=== PATIENT | female | born 1960 | race African-American/Black ===

== ENCOUNTER 2016-10-06 10:07 | Emergency (ER) | payer OTHER ==
[~2016-10-06] VITALS: Ht 165.1 cm; Wt 67.1 kg
[2016-10-06] MEDS ORDERED: Dicyclomine HCl 10mg/5ml oral soln ORAL ONE (10:30)
[2016-10-06] MEDS ORDERED: Morphine Sulfate 4mg/ml Inj IVP ONE (10:30)
[2016-10-06] MEDS ORDERED: Mylanta II UD 30ml ORAL ONE (10:30)
[2016-10-06] MEDS ORDERED: Lidocaine 2% Visc 15ml soln ORAL ONE (10:30)
[2016-10-06] MEDS ORDERED: Famotidine 20 MG/ 2ML VIAL IVP ONE (10:30)
[2016-10-06 10:37] VITALS: BP 130/84
[2016-10-06 11:24] LABS: APPEARANCE,URINE SLIGHTLY CLOUDY; KETONES,URINE NEGATIVE (NEGATIVE); LEUKOCYTE ESTERASE ,URINE 3+ (NEGATIVE); NITRITE,URINE NEGATIVE (NEGATIVE); PH,URINE 6 (4.5-8.0); PROTEIN,URINE 2+ (NEGATIVE); UROBILINOGEN,URINE 1 MG/DL (0.0-1.0)
[2016-10-06 11:46] LABS: BACTERIA,URINE FEW /HPF; MUCUS,URINE FEW /LPF (NONE/OCC); RBC,URINE 0-2 /HPF (0 - 2); SQUAMOUS EPITHELIAL CELL,UR FEW /LPF (NONE/OCC); WBC,URINE 15-20 /HPF (0 - 2)
[2016-10-06 12:08] LABS: BASOPHILS % (AUTO) 0.9 % (0.0-2.0); EOSINOPHILS % (AUTO) 0.1 % (0.0-3.0); LYMPHOCYTES % (AUTO) 24.4 % (20.0-45.0); MEAN CORPUSCULAR HEMOGLOBIN 27.3 PG (27.0-31.0); MEAN CORPUSCULAR HGB CONC 31.9 G/DL (32.0-36.0); MEAN CORPUSCULAR VOLUME 86 FL (80-99); MEAN PLATELET VOLUME 9.3 FL (6.5-10.1); MONOCYTES % (AUTO) 5.1 % (1.0-10.0); NEUTROPHILS % (AUTO) 69.5 % (45.0-75.0); PLATELET COUNT 171 K/UL (150-450); RED BLOOD COUNT 5.36 M/UL (4.20-5.40); RED CELL DISTRIBUTION WIDTH 13.8 % (11.6-14.8); WHITE BLOOD COUNT 6.9 K/UL (4.8-10.8)
[2016-10-06 14:05] VITALS: BP 128/73
[2016-10-06] MEDS ORDERED: ZOFRAN ODT4 MG ORAL (14:14)
[2016-10-06] MEDS ORDERED: PROTONIX40 MG ORAL (14:14)
[2016-10-06 14:15] VITALS: BP 128/73
--- NOTE | 2016-10-06 15:07 | Emergency Room Report ---
History of Present Illness General Chief Complaint: Abdominal Pain Source: Patient Present Illness HPI 56-year-old female presents ED complaining of abdominal pain. States symptoms started today. Patient came in by EMS. Patient states that she is written recently noted to have gastritis. Scheduled to see GI specialist as outpatient next week. Patient states the last week she has been to [facility] and [place] for the same reason. Patient told her workup is negative was discharged on medications. States the medications are not helping. Patient states the pain is sharp, epigastric, nonradiating. 10 out of 10. No other aggravating relieving factors. Denies chest pain or shortness of breath. Denies any other associated symptoms Allergies: Coded Allergies: No Known Allergies (Unverified , 10/06/16) Patient History Past Medical History: GERD Past Surgical History: none - a Pertinent Family History: none Social History: Denies: alcohol use, drug use, smoking Last Menstrual Period: na Now: No Immunizations: UTD Reviewed Nursing Documentation: PMH: Agreed, PSxH: Agreed Nursing Documentation-PMH Past Medical History: No Stated History Review of Systems All Other Systems: negative except mentioned in HPI Physical Exam Vital Signs Date Time Temp Pulse Resp B/P Pulse Ox O2 Delivery O2 Flow Rate FiO2 10/06/16 10:04 98 16 179/132 98 Room Air 10/06/16 10:37 97.6 Sp02 EP Interpretation: reviewed, normal General Appearance: alert, GCS 15, non-toxic, mild distress Head: normocephalic, atraumatic Eyes: bilateral eye PERRL, bilateral eye normal inspection ENT: hearing grossly normal, normal pharynx, no angioedema, normal voice Neck: full range of motion, supple/symm/no masses Respiratory: chest non-tender, lungs clear, normal breath sounds, speaking full sentences Cardiovascular #1: regular rate, rhythm, no edema Cardiovascular #2: 2+ carotid (R), 2+ carotid (L), 2+ radial (R), 2+ radial (L) , 2+ dorsalis pedis (R), 2+ dorsalis pedis (L) Gastrointestinal: normal bowel sounds, soft, non-distended, no guarding, no rebound, tenderness Rectal: deferred Genitourinary: normal inspection, no CVA tenderness Musculoskeletal: back normal, gait/station normal, normal range of motion, non- tender Neurologic: alert, oriented x3, responsive, motor strength/tone normal, sensory intact, speech normal Psychiatric: judgement/insight normal, memory normal, mood/affect normal, no suicidal/homicidal ideation Reflexes: 3+ bicep (R), 3+ bicep (L), 3+ tricep (R), 3+ tricep (L), 3+ knee (R) , 3+ knee (L) Skin: normal color, no rash, warm/dry, well hydrated Lymphatic: no adenopathy Medical Decision Making Diagnostic Impression: Primary Impression: Gastritis Qualified Codes: K29.00 - Acute gastritis without bleeding Additional Impression: Opioid use disorder, severe, dependence ER Course Hospital Course 56-year-old F presents to ED with epigastric pain with N/V. differential diagnosis: gastritis, SBO, cholecystits Clinical course Patient placed on stretcher. On coat checker. After initial history and physical I ordered labs, IV fluids, morphine, protonix and zofran Labs - no leukocytosis, hb/hct stable chemistry hemolyzed twice, refused to have 3rd draw Upon reassessment, patient states pain has improved. findings consistent with gastritis. Reviewed patient's discharge papers from the last 2 visits to [place] and [facility]. Workups for unremarkable including chemistry and troponins. I feel this is a highly complex case requiring extensive working including EKG/ Rhythm strip, Xray/CT/US, Blood/urine lab work, repeat exams while in ED, and administration of strong opiates/narcotics for pain control, admission to hospital or close patient follow up. Diagnosis - gastritis, opioid use dependence Stable and discharged to home with prescriptions for protonix, zofran. Followup with PMD. Return to ED if symptoms recur or worsen Labs Test 10/06/16 11:05 10/06/16 11:57 Urine Color Yellow Urine Appearance Slightly cloudy Urine pH 6 (4.5-8.0) Urine Specific [place] 1.015 (1.005-1.035) Urine Protein 2+ (NEGATIVE) Urine Glucose (UA) Negative (NEGATIVE) Urine Ketones Negative (NEGATIVE) Urine Occult Blood Negative (NEGATIVE) Urine Nitrite Negative (NEGATIVE) Urine Bilirubin Negative (NEGATIVE) Urine Urobilinogen 1 MG/DL (0.0-1.0) Urine Leukocyte Esterase 3+ (NEGATIVE) Urine RBC 0-2 /HPF (0 - 2) Urine WBC 15-20 /HPF (0 - 2) Urine Squamous Epithelial Cells Few /LPF (NONE/OCC) Urine Bacteria Few /HPF (NONE) Urine Mucus Few /LPF (NONE/OCC) White Blood Count 6.9 K/UL (4.8-10.8) Red Blood Count 5.36 M/UL (4.20-5.40) Hemoglobin 14.6 G/DL (12.0-16.0) Hematocrit 45.8 % (37.0-47.0) Mean Corpuscular Volume 86 FL (80-99) Mean Corpuscular Hemoglobin 27.3 PG (27.0-31.0) Mean Corpuscular Hemoglobin Concent 31.9 G/DL (32.0-36.0) Red Cell Distribution Width 13.8 % (11.6-14.8) Platelet Count 171 K/UL (150-450) Mean Platelet Volume 9.3 FL (6.5-10.1) Neutrophils (%) (Auto) 69.5 % (45.0-75.0) Lymphocytes (%) (Auto) 24.4 % (20.0-45.0) Monocytes (%) (Auto) 5.1 % (1.0-10.0) Eosinophils (%) (Auto) 0.1 % (0.0-3.0) Basophils (%) (Auto) 0.9 % (0.0-2.0) EKG Diagnostic Results Rate: normal Rhythm: NSR ST Segments: no acute changes ASA given to the pt in ED: No Rhythm Strip Diag. Results EP Interpretation: yes Rhythm: NSR, no PVC's, no ectopy Last Vital Signs Date Time Temp Pulse Resp B/P Pulse Ox O2 Delivery O2 Flow Rate FiO2 10/06/16 14:15 97.6 64 18 128/73 100 Room Air Status: improved Disposition: HOME, SELF-CARE Condition: Stable Scripts Ondansetron Odt* (ZOFRAN ODT*) 4 Mg Tab.rapdis 4 MG ORAL Q6H Y for Nausea & Vomiting, #30 TAB 0 Refills Prov: ADILIA MURCIA M.D. 10/06/16 Pantoprazole* (PROTONIX*) 40 Mg Tablet.dr 40 MG ORAL DAILY, #30 TAB Prov: ADILIA MURCIA M.D. 10/06/16 Patient Instructions: Gastritis, Adult, [id number] ADILIA MURCIA M.D. Oct 06, 2016 15:07
--- NOTE | 2016-10-08 08:57 | Emergency Room Report ---
Physical Exam Vital Signs Date Time Temp Pulse Resp B/P Pulse Ox O2 Delivery O2 Flow Rate FiO2 10/06/16 10:04 98 16 179/132 98 Room Air 10/06/16 10:37 97.6 Medical Decision Making Diagnostic Impression: Primary Impression: Gastritis Qualified Codes: K29.00 - Acute gastritis without bleeding Additional Impression: Opioid use disorder, severe, dependence ER Course Following up on urine culture report dated 10/06/2016 with a growth of 100,000 CFU. Patient was seen on the for vomiting and treated for gastritis, there is a some suggestion of a possible urinary tract infection. The patient not receive antibiotics for was not discharged with antibiotics. I called her phone number. This did as [phone]. Left a callback number for the ER here [phone] to 01/15/2005 asking to speak with her to do symptoms followup and decision for prescription. second phone call was made, no answer at this number again. Liver by Dr. cartagena for follow up prn. Last Vital Signs Date Time Temp Pulse Resp B/P Pulse Ox O2 Delivery O2 Flow Rate FiO2 10/06/16 14:15 97.6 64 18 128/73 100 Room Air Disposition: HOME, SELF-CARE Condition: Stable Scripts Ondansetron Odt* (ZOFRAN ODT*) 4 Mg Tab.rapdis 4 MG ORAL Q6H Y for Nausea & Vomiting, #30 TAB 0 Refills Prov: ADILIA CARTAGENA M.D. 10/06/16 Pantoprazole* (PROTONIX*) 40 Mg Tablet. 40 MG ORAL DAILY, #30 TAB Prov: ADILIA CARTAGENA M.D. 10/06/16 Patient Instructions: Gastritis, Adult, [id number] Nish Sanford MD Oct 08, 2016 08:57
--- NOTE | 2016-10-09 19:13 | Cardiology Report ---
APPROVED REPORT EKG Measurement Heart [id number] PA 130P50 [id number] Normal sinus rhythm Possible Left atrial enlargement T wave abnormality, consider anterior ischemia Abnormal ECG
== END 2016-10-06 14:15 | disposition home or self-care (01) ==
LOC: EDBD 10:07 → EMR 10:40
DX: K29.70 Gastritis, unspecified, without bleeding (principal); K21.9 Gastro-esophageal reflux disease without esophagitis; F11.20 Opioid dependence, uncomplicated
CPT/HCPCS: 36415; 81003; 85025; 87086; 93005; 96374; 96375; 99284; J2270; J2405; S0028

== ENCOUNTER 2016-11-19 13:26 | Emergency (ER) | payer OTHER ==
[~2016-11-19] VITALS: Ht 157.5 cm; Wt 65.8 kg
[2016-11-19 13:26] VITALS: BP 140/80
[~2016-11-19 13:26] MED LIST: PROTONIX40 MG ORAL; ZOFRAN ODT4 MG ORAL
[2016-11-19] MEDS ORDERED: Lidocaine 2% Visc 15ml soln ORAL ONE (14:00)
[2016-11-19] MEDS ORDERED: Dicyclomine HCl 10mg/5ml oral soln ORAL ONE (14:00)
--- NOTE | 2016-11-19 14:05 | Emergency Room Report ---
History of Present Illness General Chief Complaint: General Complaint Source: Patient Present Illness HPI Patient is a 56-year-old female who presented after having increased burning sensation. Patient stated she gradual onset of symptoms. Patient prior history of pancreatitis. The patient been previously worked up with CT imaging at outside facility. Patient had been chronic pain medications that she run out of her medications. Patient had been taking Zofran as well as Protonix. Patient denies drug use or alcohol use. She states that she has not been having any fever. She reports having some right ear decreased hearing for approximately 2 weeks. Allergies: Coded Allergies: No Known Allergies (Unverified , 10/06/16) Patient History Past Medical History: see triage record Now: No Reviewed Nursing Documentation: PMH: Agreed, PSxH: Agreed Nursing Documentation-PMH Hx Cardiac Problems: No Hx Hypertension: No Hx Pacemaker: No Hx Asthma: No Hx COPD: No Hx Diabetes: No Hx Cancer: No Hx Gastrointestinal Problems: Yes - pancreatitis Hx Dialysis: No History Of Psychiatric Problem: No Hx Neurological Problems: No Hx Cerebrovascular Accident: No Hx Seizures: No Review of Systems All Other Systems: negative except mentioned in HPI Physical Exam Vital Signs Date Time Temp Pulse Resp B/P Pulse Ox O2 Delivery O2 Flow Rate FiO2 11/19/16 13:17 97.9 68 16 140/80 98 Room Air General Appearance: well appearing, no apparent distress, alert, GCS 15, Chronically Ill Head: normocephalic, atraumatic ENT: hearing grossly normal, normal voice Neck: full range of motion, supple Respiratory: lungs clear, normal breath sounds, no respiratory distress, speaking full sentences Cardiovascular #1: normal peripheral pulses, regular rate, rhythm Gastrointestinal: normal bowel sounds, non tender, soft, no mass Musculoskeletal: normal inspection, back normal, no calf tenderness Neurologic: normal inspection, alert, oriented x3, responsive, normal gait Psychiatric: mood/affect normal Skin: no rash Medical Decision Making Diagnostic Impression: Primary Impression: Opioid use disorder, severe, dependence Additional Impression: Gastritis ER Course Patient presented for abdominal pain. Differential diagnoses included ischemic bowel, appendicitis, perforated viscus, abdominal aortic aneurysm, inferior myocardial infarction, viral gastroenteritis Patient's benign exam and does not appear to require any further imaging or laboratory testing at this time. The patient appears to have a chronic pain related to her stomach and esophagus. Patient said multiple studies have been performed for evaluation. Patient has been recently prescribed multiple different types of medications which include narcotic pain medication as well as muscle relaxants and sleep medications. Patient does not appear to require any acute laboratory testing at this time. Last Vital Signs Date Time Temp Pulse Resp B/P Pulse Ox O2 Delivery O2 Flow Rate FiO2 11/19/16 13:26 97.9 68 16 140/80 98 Room Air Status: improved Disposition: HOME, SELF-CARE Condition: Stable Scripts Sucralfate* (CARAFATE*) 1 Gm Tablet 1 GM ORAL FOUR TIMES A DAY, #30 TAB Prov: Walker Breen 11/19/16 Walker Breen Nov 19, 2016 14:05
[2016-11-19] MEDS ORDERED: CARAFATE1 G1 ORAL (14:06)
[2016-11-19 14:17] VITALS: BP 140/80
== END 2016-11-19 14:17 | disposition home or self-care (01) ==
LOC: EDBD 13:26 → EMR 13:50
DX: K29.70 Gastritis, unspecified, without bleeding (principal); F11.29 Opioid dependence with unspecified opioid-induced disorder
CPT/HCPCS: 99283

== ENCOUNTER 2016-12-10 09:45 | Emergency (ER) | payer OTHER ==
[2016-12-10] VITALS (7 sets, daily range): BP systolic 155–171; BP diastolic 78–89
[~2016-12-10] VITALS: Ht 162.6 cm; Wt 56.7 kg
[~2016-12-10 09:45] MED LIST changes: +CARAFATE1 G1 ORAL
[2016-12-10] MEDS ORDERED: Tubing IV Cassette IV ONE (10:20)
[2016-12-10] MEDS: Loperamide 2mg cap ORAL ONE ×2 (10:23→11:22)
[2016-12-10 10:29] LABS: LYMPHOCYTES % (AUTO) 35.2 % (20.0-45.0); MEAN CORPUSCULAR HEMOGLOBIN 28.3 PG (27.0-31.0); MEAN CORPUSCULAR VOLUME 88 FL (80-99); MEAN PLATELET VOLUME 9.4 FL (6.5-10.1); MONOCYTES % (AUTO) 6.3 % (1.0-10.0); NEUTROPHILS % (AUTO) 55.5 % (45.0-75.0); PLATELET COUNT 163 K/UL (150-450); RED BLOOD COUNT 5.21 M/UL (4.20-5.40); RED CELL DISTRIBUTION WIDTH 13.8 % (11.6-14.8); WHITE BLOOD COUNT 4.3 K/UL (4.8-10.8)
--- NOTE | 2016-12-10 10:36 | Emergency Room Report ---
History of Present Illness General Chief Complaint: Abdominal Pain Source: Patient, EMS Present Illness HPI Patient is a 56-year-old female who presented after having increased abdominal pain. Patient prior history of pancreatitis. Patient prior recent visit for similar symptoms. Patient reports having nonbloody diarrhea. Patient states that she had not taking her pain medication for the past 3 days. Patient had previously been noted be narcotic dependent. Patient was reported having some nausea without vomiting. Patient reports having epigastric pain. Pain did not radiate. Allergies: Coded Allergies: No Known Allergies (Unverified , 10/06/16) Patient History Past Medical History: see triage record Reviewed Nursing Documentation: PMH: Agreed, PSxH: Agreed Nursing Documentation-PMH Hx Cardiac Problems: No Hx Hypertension: No Hx Pacemaker: No Hx Asthma: No Hx COPD: No Hx Diabetes: No Hx Cancer: No Hx Gastrointestinal Problems: Yes - GERD; Pancreatitis Hx Dialysis: No Hx Neurological Problems: No Hx Cerebrovascular Accident: No Hx Seizures: No Review of Systems All Other Systems: negative except mentioned in HPI Physical Exam Vital Signs Date Time Temp Pulse Resp B/P Pulse Ox O2 Delivery O2 Flow Rate FiO2 12/10/16 09:40 97.2 91 18 154/60 100 Room Air Sp02 EP Interpretation: reviewed, normal General Appearance: normal inspection, well appearing, no apparent distress, alert, GCS 15 Head: atraumatic ENT: normal ENT inspection, hearing grossly normal, normal voice Neck: normal inspection, full range of motion, supple, no bony tend Respiratory: normal inspection, lungs clear, normal breath sounds, no respiratory distress, no retraction, no wheezing Cardiovascular #1: regular rate, rhythm, no edema Gastrointestinal: normal inspection, normal bowel sounds, non tender, soft, no guarding, no hernia Genitourinary: no CVA tenderness Musculoskeletal: normal inspection, back normal, normal range of motion Neurologic: normal inspection, alert, responsive, speech normal Psychiatric: normal inspection, judgement/insight normal, mood/affect normal Skin: normal inspection, normal color, no rash Medical Decision Making Diagnostic Impression: Primary Impression: Abdominal pain Additional Impressions: Biliary tract disorder Choledocholithiasis ER Course Patient presented for abdominal pain.Patient presented for abdominal pain. Differential diagnoses included ischemic bowel, appendicitis, perforated viscus , abdominal aortic aneurysm, inferior myocardial infarction, viral gastroenteritis Because of complexity of patient's case laboratory testing and imaging studies were ordered. Laboratory testing was unremarkable. Patient showed no evidence of pancreatitis. The patient was given IV morphine for pain. Patient was noted to have CT imaging read by radiologist which showed some dilation of the patient 's common bile duct as well as the intrahepatic ducts. Laboratory testing showed no evidence of elevated white blood count or a liver function test consistent with definite biliary obstruction. The patient was given IV morphine as well as Zofran. Patient had persistent vomiting as well as consistent pain. The patient was given IV H2 jose alfredo. The patient be transferred for continuity of care to the [facility]. was accepting physician. Labs Test 12/10/16 09:55 White Blood Count 4.3 K/UL (4.8-10.8) Red Blood Count 5.21 M/UL (4.20-5.40) Hemoglobin 14.7 G/DL (12.0-16.0) Hematocrit 46.0 % (37.0-47.0) Mean Corpuscular Volume 88 FL (80-99) Mean Corpuscular Hemoglobin 28.3 PG (27.0-31.0) Mean Corpuscular Hemoglobin Concent 32.0 G/DL (32.0-36.0) Red Cell Distribution Width 13.8 % (11.6-14.8) Platelet Count 163 K/UL (150-450) Mean Platelet Volume 9.4 FL (6.5-10.1) Neutrophils (%) (Auto) 55.5 % (45.0-75.0) Lymphocytes (%) (Auto) 35.2 % (20.0-45.0) Monocytes (%) (Auto) 6.3 % (1.0-10.0) Eosinophils (%) (Auto) 2.0 % (0.0-3.0) Basophils (%) (Auto) 1.0 % (0.0-2.0) Sodium Level 140 mEQ/L (135-145) Potassium Level 3.8 mEQ/L (3.4-4.9) Chloride Level 99 mEQ/L (98-107) Carbon Dioxide Level 26 mEQ/L (20-30) Anion Gap 15 (5-15) Blood Urea Nitrogen 12 mg/dL (7-23) Creatinine 0.8 mg/dL (0.5-0.9) Estimat Glomerular Filtration Rate > 60 mL/min (>60) Glucose Level 112 mg/dL (74-106) Calcium Level 9.6 mg/dL (8.6-10.2) Total Bilirubin 0.2 mg/dL (0.0-1.2) Aspartate Amino Transf (AST/SGOT) 23 U/L (5-40) Alanine Aminotransferase (ALT/SGPT) 26 U/L (3-33) Alkaline Phosphatase 72 U/L (35-104) Total Protein 7.6 g/dL (6.6-8.7) Albumin 4.2 g/dL (3.5-5.2) Globulin 3.4 g/dL Albumin/Globulin Ratio 1.2 (1.0-2.7) Lipase 23 U/L (< 60) Last Vital Signs Date Time Temp Pulse Resp B/P Pulse Ox O2 Delivery O2 Flow Rate FiO2 12/10/16 10:00 70 16 161/80 100 Room Air 12/10/16 09:40 97.2 Status: unchanged Disposition: ADMITTED INPATIENT Condition: Serious Referrals: [facility],REFERRING (PCP) Walker Breen Dec 10, 2016 10:36
[2016-12-10 10:45] LABS: ALANINE AMINOTRANSFERASE 26 U/L (3-33); ALBUMIN/GLOBULIN RATIO 1.2 (1.0-2.7); ANION GAP 15 (5-15); ASPARTATE AMINO TRANSFERASE 23 U/L (5-40); CALCIUM 9.6 mg/dL (8.6-10.2); CARBON DIOXIDE 26 mEQ/L (20-30); CHLORIDE 99 mEQ/L (98-107); CREATININE 0.8 mg/dL (0.5-0.9); GLOMERULAR FILTRATION RATE > 60 mL/min (>60); HEMOLYSIS 6; LIPASE 23 U/L (< 60); POTASSIUM 3.8 mEQ/L (3.4-4.9); SODIUM 140 mEQ/L (135-145); TOTAL PROTEIN 7.6 g/dL (6.6-8.7)
[2016-12-10] MEDS ORDERED: Morphine Sulfate 4mg/ml Inj IVP ONE ×3 (10:45→16:15)
[2016-12-10] MEDS ORDERED: Famotidine 20 MG/ 2ML VIAL IVP ONE (11:45)
[2016-12-10 12:54] LABS: APPEARANCE,URINE CLEAR; KETONES,URINE NEGATIVE (NEGATIVE); LEUKOCYTE ESTERASE ,URINE 1+ (NEGATIVE); NITRITE,URINE NEGATIVE (NEGATIVE); PH,URINE 8 (4.5-8.0); PROTEIN,URINE NEGATIVE (NEGATIVE); UROBILINOGEN,URINE NORMAL MG/DL (0.0-1.0)
[2016-12-10 13:06] LABS: BACTERIA,URINE FEW /HPF; RBC,URINE 0-2 /HPF (0 - 2); SQUAMOUS EPITHELIAL CELL,UR FEW /LPF (NONE/OCC)
[2016-12-10] MEDS ORDERED: Metoclopramide 10mg/2ml Inj IVP ONE (13:45)
[2016-12-10] MEDS ORDERED: UNOBMED (14:36)
[2016-12-10] MEDS ORDERED: Ampicillin/Sulbactam Sod 3 GM in NS 110 ML IVPB ONE (16:15)
[2016-12-10] MEDS ORDERED: Unasyn 3gm Inj ONE (16:57)
[2016-12-10] MEDS ORDERED: Enalaprilat 2.5mg/2ml Inj IV ONE (17:45)
--- NOTE | 2016-12-11 09:40 | Diagnostic Imaging Report ---
Indication: Shortness of breath Technique: One view of the chest Comparison: 11/30/2008 Findings: On the pleural spaces are clear. Heart size is normal. Aorta is somewhat tortuous. No significant change Impression: No acute process
--- NOTE | 2016-12-14 22:29 | Cardiology Report ---
APPROVED REPORT EKG Measurement Heart [id number] VT 150P57 [id number] Normal sinus rhythm T wave abnormality, consider anterior ischemia Prolonged QT Abnormal ECG
--- NOTE | 2016-12-20 11:51 | Diagnostic Imaging Report ---
\H\CT Abdomen and Pelvis Date of service: 12/10/16. Indication: Abdominal pain, nausea/vomiting. Comparison: None available. Technique: Utilizing a multislice CT scanner, a CT of the abdomen and pelvis was performed without intravenous contrast. All CT scans at this facility use dose modulation, iterative reconstruction, and/or weight based dosing when appropriate to reduce radiation dose to as low as reasonably achievable. CTDIvol (mGy): 15 DLP (mGy-cm): 732 Findings: Lack of intravenous contrast limits evaluation of the visceral and vascular structures. The visualized lung bases exhibit moderate atelectasis or scarring. A 2.2 x 9 mm ill-defined ovoid nodular opacity in the posterior medial right lower lung abutting the pleura likely reflects rounded atelectasis or scarring. The liver is unremarkable. The gallbladder is mildly distended. Moderate distention of the common bile duct measuring up to 12 mm in diameter is identified. Mild intrahepatic biliary ductal dilatation is identified. Dilatation of the central pancreatic duct is suspected. The pancreas is not optimally evaluated without intravenous contrast. The spleen and adrenal glands are unremarkable. No calculus is identified within either kidney, along the expected course of the ureters or within the urinary bladder. There is no evidence of hydronephrosis or asymmetric perirenal inflammatory change. The urinary bladder is grossly unremarkable. The pelvic organs are grossly unremarkable. The visualized bowel are grossly unremarkable. There is no evidence of obstruction. There is no extraluminal gas or fluid. The appendix appears normal. No evidence of acute diverticulitis. There are no enlarged lymph nodes. There is moderate calcified atherosclerotic disease of the the abdominal aorta. Mildly low scoliosis of the lumbar spine is noted. Severe disc space height loss, vacuum phenomenon and endplate sclerotic changes are noted particularly at L2-L3 through L5-S1 levels. Note is made of sacralization of L5 vertebral body. \N\\H\Impression: 1. Moderately dilated common bile duct, mild intrahepatic biliary ductal dilatation, and suspected dilatation of the central pancreatic duct. Further evaluation with abdomen MRI/MRCP or ERCP should be considered to exclude choledocholithiasis or other etiology for ductal obstruction such as an ampullary mass or pancreatic neoplasm. 2. No evidence of bowel obstruction. Normal appendix. 3. Degenerative disc disease.\N\
== END 2016-12-10 20:57 | disposition short-term general hospital (02) ==
LOC: EDBD 09:45 → EMR 10:14
DX: R10.9 Unspecified abdominal pain (principal); K80.50 Calculus of bile duct without cholangitis or cholecystitis without obstruction; K83.9 Disease of biliary tract, unspecified; K21.9 Gastro-esophageal reflux disease without esophagitis
CPT/HCPCS: 36415; 71010; 74176; 80053; 80300; 81003; 83690; 85025; 93005; 96360; 96374; 96375; 99285; J0295; J0360; J2270; J2405; J2765; J7040; S0028

== ENCOUNTER 2017-05-23 01:27 | Inpatient (IN) | payer OTHER ==
[2017-05-23] VITALS (9 sets, daily range): BP systolic 125–156; BP diastolic 68–99
[~2017-05-23] VITALS: Ht 154.9 cm; Wt 59.0 kg
[~2017-05-23 01:27] MED LIST changes: +UNOBMED
--- NOTE | 2017-05-23 01:49 | Emergency Room Report ---
History of Present Illness General Chief Complaint: Abdominal Pain Source: Patient (NENO MURRAY D.O.) Present Illness HPI Her symptoms with complaints of epigastric pain Reports increased nausea vomiting Patient was here previously with similar pain She reports that she was also seen at [place] 2 months ago Our did not know what the pain was from Pain is 10 out of 10 Denies any diarrhea denies any chest pain or shortness of breath Denies any dysuria or frequency denies any flank pain Pain is epigastric burning sensation (NENO MURRAY D.O.) Allergies: Coded Allergies: No Known Allergies (Unverified , 10/06/16) Patient History Past Medical History: see triage record Pertinent Family History: none Reviewed Nursing Documentation: PMH: Agreed, PSxH: Agreed (NENO MURRAY D.O.) Nursing Documentation-PMH Hx Cardiac Problems: No Hx Hypertension: No Hx Pacemaker: No Hx Asthma: No Hx COPD: No Hx Diabetes: No Hx Cancer: No Hx Gastrointestinal Problems: Yes - GERD; Pancreatitis Hx Dialysis: No Hx Neurological Problems: No Hx Cerebrovascular Accident: No Hx Seizures: No (NENO MURRAY D.O.) Review of Systems All Other Systems: negative except mentioned in HPI (NENO MURRAY D.O.) Physical Exam Vital Signs Date Time Temp Pulse Resp B/P (MAP) Pulse Ox O2 Delivery O2 Flow Rate FiO2 05/23/17 01:33 97.9 59 16 122/85 95 Room Air Sp02 EP Interpretation: reviewed, normal General Appearance: well appearing, mild distress - in acute pain Head: normocephalic, atraumatic Eyes: bilateral eye PERRL, bilateral eye EOMI ENT: hearing grossly normal, normal pharynx, TMs + canals normal, uvula midline Neck: full range of motion, supple, no meningismus, no bony tend Respiratory: lungs clear, normal breath sounds, no rhonchi, no respiratory distress, no retraction, no accessory muscle use Cardiovascular #1: normal peripheral pulses, regular rate, rhythm, no edema, no gallop, no JVD, no murmur Gastrointestinal: normal bowel sounds, non tender - However subjectively uncomfortable in the epigastric area, soft, no mass, no organomegaly, non- distended, no guarding, no hernia, no pulsatile mass, no rebound Genitourinary: no CVA tenderness Musculoskeletal: normal inspection Neurologic: oriented x3, responsive, solar sales rep III-XII nml as tested, motor strength/ tone normal, sensory intact Psychiatric: other - Patient is somewhat histrionic Skin: normal color, no rash, warm/dry, palpation normal Lymphatic: normal inspection, no adenopathy (NENO MURRAY D.O.) Medical Decision Making Diagnostic Impression: Primary Impression: Abdominal pain Additional Impression: Dilation of biliary tract ER Course With the history exam and presentation, multiple differentials considered, including but not limited to appendicitis, gastritis, cholecystitis, diverticulitis Patient's blood work is at baseline levels however given the patient's continued discomfort repeat CAT scan imaging was obtained shows similar findings with the intrabiliary duct enlargement I feel patient is a candidate for further inpatient eval and other imaging such as ultrasound versus ERCP Labs Test 05/23/17 02:14 White Blood Count 5.0 K/UL (4.8-10.8) Red Blood Count 4.58 M/UL (4.20-5.40) Hemoglobin 13.4 G/DL (12.0-16.0) Hematocrit 40.8 % (37.0-47.0) Mean Corpuscular Volume 89 FL (80-99) Mean Corpuscular Hemoglobin 29.2 PG (27.0-31.0) Mean Corpuscular Hemoglobin Concent 32.8 G/DL (32.0-36.0) Red Cell Distribution Width 13.4 % (11.6-14.8) Platelet Count 151 K/UL (150-450) Mean Platelet Volume 11.1 FL (6.5-10.1) Neutrophils (%) (Auto) 45.3 % (45.0-75.0) Lymphocytes (%) (Auto) 42.6 % (20.0-45.0) Monocytes (%) (Auto) 8.5 % (1.0-10.0) Eosinophils (%) (Auto) 1.8 % (0.0-3.0) Basophils (%) (Auto) 1.8 % (0.0-2.0) Sodium Level 137 mEQ/L (135-145) Potassium Level 4.2 mEQ/L (3.4-4.9) Chloride Level 99 mEQ/L (98-107) Carbon Dioxide Level 27 mEQ/L (20-30) Anion Gap 11 (5-15) Blood Urea Nitrogen 14 mg/dL (7-23) Creatinine 0.9 mg/dL (0.5-0.9) Estimat Glomerular Filtration Rate > 60 mL/min (>60) Glucose Level 93 mg/dL (74-106) Calcium Level 9.3 mg/dL (8.6-10.2) Total Bilirubin < 0.2 mg/dL (0.0-1.2) Aspartate Amino Transf (AST/SGOT) 172 U/L (5-40) Alanine Aminotransferase (ALT/SGPT) 79 U/L (3-33) Alkaline Phosphatase 94 U/L (35-104) Total Protein 7.5 g/dL (6.6-8.7) Albumin 4.3 g/dL (3.5-5.2) Globulin 3.2 g/dL Albumin/Globulin Ratio 1.3 (1.0-2.7) Lipase 21 U/L (< 60) (NENO MURRAY D.O.) ER Course Patient was discussed with Dr. Curran for inpatient management due to to O physician. The patient was kept n.p.o. (Walker Breen) Rhythm Strip Diag. Results EP Interpretation: yes Rate: 77 Rhythm: NSR, no PVC's, no ectopy (NENO MURRAY D.O.) CT/MRI/US Diagnostic Results CT/MRI/US Diagnostic Results : Impression CT abdomen pelvis:dilated common bile duct (NENO MURRAY D.O.) Last Vital Signs Date Time Temp Pulse Resp B/P (MAP) Pulse Ox O2 Delivery O2 Flow Rate FiO2 05/23/17 01:33 97.9 59 16 122/85 95 Room Air Status: improved (NENO MURRAY D.O.) Status: unchanged (Walker Breen) Disposition: ADMITTED INPATIENT Condition: Serious NENO MURRAY D.O. May 23, 2017 01:49 Walker Breen May 23, 2017 10:13
[2017-05-23] MEDS ORDERED: Metoclopramide 10mg/2ml Inj IVP ONE (02:00)
[2017-05-23] MEDS ORDERED: LORazepam Inj 2mg/ml 1ml IV ONE (02:00)
[2017-05-23] MEDS ORDERED: HYDROmorphone 1 MG, DiphenhydrAMINE 25 MG in NS 55 ML IV ONE (02:00)
[2017-05-23] MEDS ORDERED: HYDROmorphone 1mg/ml Carpuject ONE (02:30)
[2017-05-23] MEDS ORDERED: DiphenhydrAMINE 50mg/ml Inj ONE (02:30)
[2017-05-23 02:58] LABS: BASOPHILS % (AUTO) 1.8 % (0.0-2.0); EOSINOPHILS % (AUTO) 1.8 % (0.0-3.0); LYMPHOCYTES % (AUTO) 42.6 % (20.0-45.0); MEAN CORPUSCULAR HEMOGLOBIN 29.2 PG (27.0-31.0); MEAN CORPUSCULAR HGB CONC 32.8 G/DL (32.0-36.0); MEAN CORPUSCULAR VOLUME 89 FL (80-99); MEAN PLATELET VOLUME 11.1 FL (6.5-10.1); MONOCYTES % (AUTO) 8.5 % (1.0-10.0); NEUTROPHILS % (AUTO) 45.3 % (45.0-75.0); PLATELET COUNT 151 K/UL (150-450); RED BLOOD COUNT 4.58 M/UL (4.20-5.40); RED CELL DISTRIBUTION WIDTH 13.4 % (11.6-14.8)
[2017-05-23 03:12] LABS: ALANINE AMINOTRANSFERASE 79 U/L (3-33); ALBUMIN/GLOBULIN RATIO 1.3 (1.0-2.7); ANION GAP 11 (5-15); ASPARTATE AMINO TRANSFERASE 172 U/L (5-40); CALCIUM 9.3 mg/dL (8.6-10.2); CARBON DIOXIDE 27 mEQ/L (20-30); CHLORIDE 99 mEQ/L (98-107); CREATININE 0.9 mg/dL (0.5-0.9); GLOMERULAR FILTRATION RATE > 60 mL/min (>60); HEMOLYSIS 8; LIPASE 21 U/L (< 60); POTASSIUM 4.2 mEQ/L (3.4-4.9); SODIUM 137 mEQ/L (135-145); TOTAL PROTEIN 7.5 g/dL (6.6-8.7)
--- NOTE | 2017-05-23 09:31 | Diagnostic Imaging Report ---
Clinical Indication: Abdominal pain Technique: No oral contrast utilized, per emergency room physician request IV administration nonionic contrast. Venous phase spiral acquisition obtained through the abdomen and pelvis. Multiplanar reconstructions were generated. Total dose length product 782 mGycm. CTDIvol(s) 15 mGy. Dose reduction achieved using automated exposure control Comparison: 12/10/2016 noncontrast study Findings: The gallbladder is distended. No definite gallstones. There is suggestion of mild pericholecystic fluid. Again demonstrated is marked dilatation of the common bile duct, which measures up to 16 mm in diameter. This appears increased in caliber since the previous study. However, no definite downstream obstructive lesion is demonstrated. There is only minimal central intrahepatic biliary ductal dilatation The liver, pancreas, spleen, adrenals are unremarkable. The left kidney demonstrates multiple subcentimeter low-attenuation lesions which are too small to characterize. No mesenteric or retroperitoneal mass or adenopathy. No pelvic mass or adenopathy. The uterus is absent, presumably postsurgically. The lung bases demonstrate bilateral scarring and atelectasis. The bones are unremarkable except for fairly extensive degenerative spondylosis changes No evidence of diverticulosis or diverticulitis. The appendix is normal. No small bowel distention. No free or loculated intraperitoneal air or fluid is evident. Impression: Markedly dilated common bile duct, somewhat more so than on prior study of 12/10/2016. However, no definite downstream obstructive lesion is demonstrated. Significance/etiology therefore uncertain. Correlate with liver function tests. Consider evaluation with ERCP or MRCP, as clinically indicated Mildly distended gallbladder, no gallstones. Equivocal mild pericholecystic fluid. Consider ultrasound for further evaluation No acute process otherwise Bilateral pulmonary probable scarring and/or atelectasis Degenerative spondylosis incidentally noted. Incidental finding left renal subcentimeter low-attenuation lesions, too small to characterize, most likely benign cyst. No further followup necessary This agrees with the preliminary interpretation provided overnight by [facility] teleradiology service. The CT scanner at [facility] is accredited by the [employer] and the scans are performed using protocols designed to limit radiation exposure to as low as reasonably achievable to attain images of sufficient resolution adequate for diagnostic evaluation.
--- NOTE | 2017-05-23 10:02 | History & Physical ---
History and Physical History & Physicial 56 year old female presents with complaints of epigastric pain with increasing nausea vomiting Patient has similar symptoms at [place] 2 months ago Denies any diarrhea denies any chest pain or shortness of breath Denies any dysuria or frequency denies any flank pain she was noted to have CBD dilatation Allergies: No Known Allergies (Unverified , 10/06/16) Past Medical History: GERD, pancreatitis Pertinent Family History: none Reviewed of systems: otherwise negative Physical exam WDWN NAD clear breath sounds bilaterally without rhonchi or wheeze [id number] without MRG NABS tender abdomen no HSM no CCE nonfocal Laboratory Tests Test 05/23/17 02:14 White Blood Count 5.0 K/UL (4.8-10.8) Red Blood Count 4.58 M/UL (4.20-5.40) Hemoglobin 13.4 G/DL (12.0-16.0) Hematocrit 40.8 % (37.0-47.0) Mean Corpuscular Volume 89 FL (80-99) Mean Corpuscular Hemoglobin 29.2 PG (27.0-31.0) Mean Corpuscular Hemoglobin Concent 32.8 G/DL (32.0-36.0) Red Cell Distribution Width 13.4 % (11.6-14.8) Platelet Count 151 K/UL (150-450) Mean Platelet Volume 11.1 FL (6.5-10.1) H Neutrophils (%) (Auto) 45.3 % (45.0-75.0) Lymphocytes (%) (Auto) 42.6 % (20.0-45.0) Monocytes (%) (Auto) 8.5 % (1.0-10.0) Eosinophils (%) (Auto) 1.8 % (0.0-3.0) Basophils (%) (Auto) 1.8 % (0.0-2.0) Sodium Level 137 mEQ/L (135-145) Potassium Level 4.2 mEQ/L (3.4-4.9) Chloride Level 99 mEQ/L (98-107) Carbon Dioxide Level 27 mEQ/L (20-30) Anion Gap 11 (5-15) Blood Urea Nitrogen 14 mg/dL (7-23) Creatinine 0.9 mg/dL (0.5-0.9) Estimat Glomerular Filtration Rate > 60 mL/min (>60) Glucose Level 93 mg/dL (74-106) Calcium Level 9.3 mg/dL (8.6-10.2) Total Bilirubin < 0.2 mg/dL (0.0-1.2) Aspartate Amino Transf (AST/SGOT) 172 U/L (5-40) H Alanine Aminotransferase (ALT/SGPT) 79 U/L (3-33) H Alkaline Phosphatase 94 U/L (35-104) Total Protein 7.5 g/dL (6.6-8.7) Albumin 4.3 g/dL (3.5-5.2) Globulin 3.2 g/dL Albumin/Globulin Ratio 1.3 (1.0-2.7) Lipase 21 U/L (< 60) IMPRESSION elevated liver enzymes CBD dilatation ho pancreatitis PLAN NPO MRCP GI evaluation beto skelton impression, plan, and exam edited and reviewed in detail care discussed with ROHIT ALVAREZ May 23, 2017 10:02
[2017-05-23] MEDS ORDERED: Zolpidem 5mg tab ORAL PRN (14:45)
[2017-05-23] MEDS ORDERED: Morphine Sulfate 2mg/ml Inj IM PRN (14:45)
[2017-05-23] MEDS ORDERED: Morphine Sulfate 4mg/ml Inj IM PRN (14:45)
[2017-05-23] MEDS ORDERED: Morphine Sulfate 2mg/ml Inj IVP PRN (15:45)
[2017-05-23] MEDS ORDERED: Morphine Sulfate 10mg/ml Inj IVP PRN (16:15)
[2017-05-23] MEDS: Sucralfate 1gm tab ORAL SCH ×2 (17:56→20:13)
[2017-05-23] MEDS: Morphine Sulfate 2mg/ml Inj IVP PRN (20:14)
[2017-05-24] MEDS: Morphine Sulfate 2mg/ml Inj IVP PRN ×2 (02:51→08:18)
[2017-05-24 04:00] VITALS: BP 137/79
[2017-05-24 07:07] LABS: BASOPHILS % (AUTO) 0.9 % (0.0-2.0); EOSINOPHILS % (AUTO) 2.5 % (0.0-3.0); LYMPHOCYTES % (AUTO) 47.7 % (20.0-45.0); MEAN CORPUSCULAR HEMOGLOBIN 29.8 PG (27.0-31.0); MEAN CORPUSCULAR HGB CONC 33.2 G/DL (32.0-36.0); MEAN CORPUSCULAR VOLUME 90 FL (80-99); MONOCYTES % (AUTO) 7.6 % (1.0-10.0); NEUTROPHILS % (AUTO) 41.4 % (45.0-75.0); PLATELET COUNT 114 K/UL (150-450); RED BLOOD COUNT 4.17 M/UL (4.20-5.40); RED CELL DISTRIBUTION WIDTH 13.3 % (11.6-14.8); WHITE BLOOD COUNT 4.4 K/UL (4.8-10.8)
[2017-05-24 07:16] LABS: ALANINE AMINOTRANSFERASE 43 U/L (3-33); ALBUMIN/GLOBULIN RATIO 1.2 (1.0-2.7); ANION GAP 8 (5-15); ASPARTATE AMINO TRANSFERASE 26 U/L (5-40); CALCIUM 8.4 mg/dL (8.6-10.2); CARBON DIOXIDE 29 mEQ/L (20-30); CHLORIDE 102 mEQ/L (98-107); CREATININE 0.7 mg/dL (0.5-0.9); GLOMERULAR FILTRATION RATE > 60 mL/min (>60); HEMOLYSIS 1; POTASSIUM 3.6 mEQ/L (3.4-4.9); SODIUM 139 mEQ/L (135-145)
[2017-05-24] MEDS: Sucralfate 1gm tab ORAL SCH ×4 (08:12→22:20)
[2017-05-24 08:18] VITALS: BP 123/76
--- NOTE | 2017-05-24 08:54 | General Progress Note ---
Assessment/Plan Assessment/Plan IMPRESSION elevated liver enzymes CBD dilatation ho pancreatitis PLAN NPO MRCP GI evaluation beto skelton impression, plan, and exam edited and reviewed in detail care discussed with RN Subjective Allergies: Coded Allergies: No Known Allergies (Unverified , 10/06/16) Subjective care noted Objective Last 24 Hour Vital Signs Date Time Temp Pulse Resp B/P (MAP) Pulse Ox O2 Delivery O2 Flow Rate FiO2 05/24/17 08:18 97.4 75 19 123/76 95 Room Air 05/24/17 04:00 97.4 62 18 137/79 95 Room Air 05/23/17 23:55 98.2 70 18 125/68 93 Room Air 05/23/17 20:00 99.2 66 18 139/78 96 Room Air 05/23/17 12:00 97.3 71 20 156/91 95 Room Air 05/23/17 11:09 63 15 150/90 95 Room Air 05/23/17 10:38 68 15 135/99 100 Room Air 05/23/17 09:15 74 16 155/99 100 Room Air Laboratory Tests 05/24/17 05:20: White Blood Count 4.4L, Red Blood Count 4.17L, Hemoglobin 12.5, Hematocrit 37.5 , Mean Corpuscular Volume 90, Mean Corpuscular Hemoglobin 29.8, Mean Corpuscular Hemoglobin Concent 33.2, Red Cell Distribution Width 13.3, Platelet Count 114L, Mean Platelet Volume 11.0H, Neutrophils (%) (Auto) 41.4L, Lymphocytes (%) (Auto) 47.7H, Monocytes (%) (Auto) 7.6, Eosinophils (%) (Auto) 2.5, Basophils (%) (Auto) 0.9, Sodium Level 139, Potassium Level 3.6, Chloride Level 102, Carbon Dioxide Level 29, Anion Gap 8, Blood Urea Nitrogen 9, Creatinine 0.7, Estimat Glomerular Filtration Rate > 60, Glucose Level 96, Calcium Level 8.4L, Total Bilirubin 0.3, Aspartate Amino Transf (AST/SGOT) 26, Alanine Aminotransferase (ALT/SGPT) 43H, Alkaline Phosphatase 79, Total Protein 6.0L, Albumin 3.3L, Globulin 2.7, Albumin/Globulin Ratio 1.2, Hepatitis A IgM Antibody [Pending], Hepatitis B Surface Antigen [Pending], Hepatitis B Core IgM Antibody [Pending], Hepatitis C Antibody [Pending] Height (Feet): 5 Height (Inches): 2.00 Weight (Pounds): 130 Objective WDWN NAD clear breath sounds bilaterally without rhonchi or wheeze [id number] without MRG NABS mildly tender no HSM no CCE nonfocal ROHIT GAMING May 24, 2017 08:54
--- NOTE | 2017-05-24 10:12 | General Progress Note ---
Assessment/Plan Assessment/Plan Assessment - abdominal pain - chronic CBD dilation - abnormal LFT - chronic back pain - h/o drug use Recommendations - await MRCP - check heptitis serologies - pain control Subjective Allergies: Coded Allergies: No Known Allergies (Unverified , 10/06/16) Subjective above noted c/o abd pain for MRI today Objective Last 24 Hour Vital Signs Date Time Temp Pulse Resp B/P (MAP) Pulse Ox O2 Delivery O2 Flow Rate FiO2 05/24/17 08:18 97.4 75 19 123/76 95 Room Air 05/24/17 04:00 97.4 62 18 137/79 95 Room Air 05/23/17 23:55 98.2 70 18 125/68 93 Room Air 05/23/17 20:00 99.2 66 18 139/78 96 Room Air 05/23/17 12:00 97.3 71 20 156/91 95 Room Air 05/23/17 11:09 63 15 150/90 95 Room Air 05/23/17 10:38 68 15 135/99 100 Room Air Laboratory Tests 05/24/17 05:20: White Blood Count 4.4L, Red Blood Count 4.17L, Hemoglobin 12.5, Hematocrit 37.5 , Mean Corpuscular Volume 90, Mean Corpuscular Hemoglobin 29.8, Mean Corpuscular Hemoglobin Concent 33.2, Red Cell Distribution Width 13.3, Platelet Count 114L, Mean Platelet Volume 11.0H, Neutrophils (%) (Auto) 41.4L, Lymphocytes (%) (Auto) 47.7H, Monocytes (%) (Auto) 7.6, Eosinophils (%) (Auto) 2.5, Basophils (%) (Auto) 0.9, Sodium Level 139, Potassium Level 3.6, Chloride Level 102, Carbon Dioxide Level 29, Anion Gap 8, Blood Urea Nitrogen 9, Creatinine 0.7, Estimat Glomerular Filtration Rate > 60, Glucose Level 96, Calcium Level 8.4L, Total Bilirubin 0.3, Aspartate Amino Transf (AST/SGOT) 26, Alanine Aminotransferase (ALT/SGPT) 43H, Alkaline Phosphatase 79, Total Protein 6.0L, Albumin 3.3L, Globulin 2.7, Albumin/Globulin Ratio 1.2, Hepatitis A IgM Antibody [Pending], Hepatitis B Surface Antigen [Pending], Hepatitis B Core IgM Antibody [Pending], Hepatitis C Antibody [Pending] Height (Feet): 5 Height (Inches): 2.00 Weight (Pounds): 130 Objective WDWN AA woman NCAT supple CTA RRR Abd soft ND, (+) TTP epigastric no edema non focal GIO BLANCA May 24, 2017 10:12
[2017-05-24 11:32] VITALS: BP 132/91
[2017-05-24] MEDS: Morphine Sulfate 4mg/ml Inj IVP PRN ×3 (11:33→18:08)
[2017-05-24] MEDS: LORazepam Inj 2mg/ml 1ml IV PRN ×2 (13:58→18:18)
--- NOTE | 2017-05-24 14:57 | Diagnostic Imaging Report ---
Indication: Dilated common bile duct on prior imaging studies. History pancreatitis. Epigastric pain Technique: Coronal and axial single shot fast spin-echo breath-hold, axial T2 FRFSE, 2-D thick slab MRCP, AXIAL 2-D FIESTA fat saturated, axial 3-D dual echo breath-hold, water weighted axial LAVA FLEX, revealed 3-D MRCP images were obtained of the abdomen. MIP reconstructions were generated of the bile ducts Comparison: 05/23/2017 CT scan Findings: There is a slight degree of image degradation due to respiratory motion artifact. The gallbladder is mildly distended. No definite filling defects to suggest also this. There is equivocal very slight nodularity of the mucosal surface which may also be evident on the prior CT scan, if real. A trace amount of pericholecystic fluid is seen between the liver and the gallbladder, appearing similar to that seen on the prior CT scan. The common bile duct is dilated, measuring 12 mm in diameter, and the common hepatic duct is even more dilated, measuring 15 mm in diameter. Is also mild central intrahepatic biliary ductal dilatation. On the axial single shot fast spin-echo images, there is on a single slice a suggestion of a 3 mm filling defect in the downstream common bile duct, image 25 of series 5. However, none of the other sequences confirm this. There is also mild dilatation of the pancreatic duct, which measures 5 mm in diameter. This is somewhat more striking on these images than on the CT images. No pancreatic head mass demonstrated. There is suggestion of mild atrophy of the pancreatic body and tail. The liver is unremarkable. The spleen, adrenals are unremarkable. The left kidney demonstrates a 9 mm interpolar region cyst, also demonstrated on prior CT, more clearly cystic on current exam. A second 2 mm lesion is seen posteriorly in the left kidney. No evidence of free intraperitoneal fluid. There is trace bilateral pleural fluid as well as bilateral basilar pulmonary atelectasis. Impression: Marked biliary ductal dilatation, also described on multiple prior CT scans. No definite downstream obstructive lesion. On a single slice on a single sequence, there is questionably a 3 mm filling defect within the downstream common bile duct, but this is not confirmed on any other images and is suspected to be artifactual rather than representing a calculus. Mild pericholecystic fluid. No definite gallstones. Significance of the pericholecystic fluid is uncertain, particularly given the apparent absence of gallbladder wall thickening.. Nonetheless, nuclear medicine hepatic biliary scan may be useful if there is high clinical suspicion for acute cholecystitis Mild pancreatic ductal dilatation. Significance/etiology uncertain, although mild atrophy of the pancreatic body and tail raises possibility of chronic pancreatitis Trace bilateral pleural fluid Incidental finding left renal cysts
--- NOTE | 2017-05-24 15:30 | Consultation ---
DATE OF CONSULTATION: 05/23/2017 NOTE: POOR AUDIO QUALITY GASTROLOGY CONSULTATION CONSULTING PHYSICIAN: Felicity Mason M.D. CHIEF COMPLAINT: I was asked to see this patient by Dr. Jim Curarn for evaluation of abdominal pain and vomiting. HISTORY OF PRESENT ILLNESS: The patient is a 56-year-old woman, who comes in with complaints of abdominal pain in the epigastric region with nausea and vomiting. She states that this has been happening few months and she wants to be evaluated and cause determined. She does have some abnormal liver test and blood test. In addition, she has common bile duct dilatation, which was seen in a previous imaging few months ago, but perhaps it is slightly worse. No gallstones have been identified. PAST MEDICAL HISTORY: Remarkable for history of gastroesophageal reflux as well as history of pancreatitis. FAMILY HISTORY: Noncontributory. SOCIAL HISTORY: The patient has had a previous history of drug use in the past . She does not drink alcohol. REVIEW OF SYSTEMS: Otherwise negative. PHYSICAL EXAMINATION: GENERAL: This is a well-developed, well-nourished woman, seen in her room. HEENT: Normocephalic and atraumatic. Sclerae are anicteric. Oropharynx clear. NECK: Supple. CHEST: Clear to auscultation. CARDIOVASCULAR: Regular rhythm and rate. ABDOMEN: Soft with some mild epigastric abdominal tenderness. EXTREMITIES: Revealed no edema. LABORATORY DATA: Noted. ASSESSMENT: This patient presents with abdominal pain, nausea, and vomiting in addition to CBD dilatation. The patient has a normal alkaline phosphatase so obstructive pathology is less likely. The patient will have an MRI and possibly an endoscopic retrograde cholangiopancreatography examination. However, for the time being, I will order an MRCP examination to better evaluate the duct for further workup. RECOMMENDATIONS: 1. Check hepatitis serologies. 2. Check MRCP examination. 3. Oral diet as tolerated. 4. Further recommendations to follow. Thank you for asking me to participate in the care of this patient. Felicity Mason M.D. DR: Eunice JOB#: [id number] CC: MARCO ANTONIO
[2017-05-24 16:07] VITALS: BP 134/70
[2017-05-24] MEDS ORDERED: NS 55ml IV ONE (17:42)
[2017-05-24 20:00] VITALS: BP 122/73
[2017-05-25] VITALS (8 sets, daily range): BP systolic 128–157; BP diastolic 78–88
[2017-05-25] MEDS: Morphine Sulfate 2mg/ml Inj IVP PRN (04:05)
[2017-05-25] MEDS: LORazepam Inj 2mg/ml 1ml IV PRN (04:48)
--- NOTE | 2017-05-25 08:52 | General Progress Note ---
Assessment/Plan Assessment/Plan IMPRESSION elevated liver enzymes CBD dilatation ho pancreatitis PLAN HIDA and EUS GI evaluation hydrate nafisa de leon per GI impression, plan, and exam edited and reviewed in detail care discussed with RN Subjective Allergies: Coded Allergies: No Known Allergies (Unverified , 10/06/16) Subjective care noted Objective Last 24 Hour Vital Signs Date Time Temp Pulse Resp B/P (MAP) Pulse Ox O2 Delivery O2 Flow Rate FiO2 05/25/17 04:00 98.1 67 18 138/78 96 Room Air 05/25/17 00:00 97.8 79 18 128/86 97 Room Air 05/24/17 20:00 98.2 86 18 122/73 96 Room Air 05/24/17 16:07 97.6 74 18 134/70 95 Room Air 05/24/17 11:32 97.8 76 19 132/91 95 Room Air Height (Feet): 5 Height (Inches): 2.00 Weight (Pounds): 130 Objective WDWN NAD clear breath sounds bilaterally without rhonchi or wheeze [id number] without MRG NABS mildly tender no HSM no CCE nonfocal ROHIT GAMING May 25, 2017 08:52
[2017-05-25] MEDS: Sucralfate 1gm tab ORAL SCH ×2 (09:00→12:12)
--- NOTE | 2017-05-25 09:44 | Pre-Procedure Note/Attestation ---
Pre-Procedure Note/Attestation Complete Prior to Procedure Planned Procedure: not applicable Procedure Narrative: eus Indications for Procedure Pre-Operative Diagnosis: dilated CBD Attestation I attest that I discussed the nature of the procedure; its benefits; risks and complications; and alternatives (and the risks and benefits of such alternatives ), prior to the procedure, with the patient (or the patient's legal customer field representative). I attest that, if there was a reasonable possibility of needing a blood transfusion, the patient (or the patient's legal customer field representative) was given the [facility] standardized written summary, pursuant to the Antonio Prema Blood Safety Act ([place] Health and Safety Code # 1645, as amended). I attest that I re-evaluated the patient just prior to the surgery and that there has been no change in the patient's H&P, except as documented below: TERE PHILIP May 25, 2017 09:44
[2017-05-25] MEDS ORDERED: Lidocaine 1% MPF 10mg/ml 5ml ONE (09:45)
[2017-05-25] MEDS ORDERED: Propofol 10mg/ml 20ml IV ONE (09:45)
--- NOTE | 2017-05-25 09:56 | Anethesia Preoperative Eval ---
Anesthesia Pre-op PMH/ROS General Date of Evaluation: May 25, 2017 Time of Evaluation: 09:41 Anesthesiologist: tesha ASA Score: ASA 2 Mallampati Score Class I : Soft palate, uvula, fauces, pillars visible Class II: Soft palate, uvula, fauces visible Class III: Soft palate, base of uvula visible Class IV: Only hard plate visible Mallampati Classification: Class II Surgeon: melly Diagnosis: abdominal pain Surgical Procedure: eus Anesthesia History: none Family History: no anesthesia problems Allergies: Coded Allergies: No Known Allergies (Unverified , 10/06/16) Medications: see eMAR Past Medical History Gastrointestinal/Genitourinary: Reports: other - gastritis Neurologic/Psychiatric: Reports: other - substance use Anesthesia Pre-op Phys. Exam Physician Exam Last Vital Signs Date Time Temp Pulse Resp B/P (MAP) Pulse Ox O2 Delivery O2 Flow Rate FiO2 05/25/17 08:00 97.6 68 19 157/88 94 Room Air Constitutional: NAD Neurologic: CN 2-12 intact Cardiovascular: RRR Respiratory: CTA Gastrointestinal: S/NT/ND Airway Exam Mallampati Score: Class II MO: full Neck: supple TMD: 2fb ROM: full Teeth: intact Anesthesia Pre-op A/P Labs Labs Test 05/23/17 02:14 05/24/17 05:20 White Blood Count 5.0 K/UL (4.8-10.8) 4.4 K/UL (4.8-10.8) Red Blood Count 4.58 M/UL (4.20-5.40) 4.17 M/UL (4.20-5.40) Hemoglobin 13.4 G/DL (12.0-16.0) 12.5 G/DL (12.0-16.0) Hematocrit 40.8 % (37.0-47.0) 37.5 % (37.0-47.0) Mean Corpuscular Volume 89 FL (80-99) 90 FL (80-99) Mean Corpuscular Hemoglobin 29.2 PG (27.0-31.0) 29.8 PG (27.0-31.0) Mean Corpuscular Hemoglobin Concent 32.8 G/DL (32.0-36.0) 33.2 G/DL (32.0-36.0) Red Cell Distribution Width 13.4 % (11.6-14.8) 13.3 % (11.6-14.8) Platelet Count 151 K/UL (150-450) 114 K/UL (150-450) Mean Platelet Volume 11.1 FL (6.5-10.1) 11.0 FL (6.5-10.1) Neutrophils (%) (Auto) 45.3 % (45.0-75.0) 41.4 % (45.0-75.0) Lymphocytes (%) (Auto) 42.6 % (20.0-45.0) 47.7 % (20.0-45.0) Monocytes (%) (Auto) 8.5 % (1.0-10.0) 7.6 % (1.0-10.0) Eosinophils (%) (Auto) 1.8 % (0.0-3.0) 2.5 % (0.0-3.0) Basophils (%) (Auto) 1.8 % (0.0-2.0) 0.9 % (0.0-2.0) Sodium Level 137 mEQ/L (135-145) 139 mEQ/L (135-145) Potassium Level 4.2 mEQ/L (3.4-4.9) 3.6 mEQ/L (3.4-4.9) Chloride Level 99 mEQ/L (98-107) 102 mEQ/L (98-107) Carbon Dioxide Level 27 mEQ/L (20-30) 29 mEQ/L (20-30) Anion Gap 11 (5-15) 8 (5-15) Blood Urea Nitrogen 14 mg/dL (7-23) 9 mg/dL (7-23) Creatinine 0.9 mg/dL (0.5-0.9) 0.7 mg/dL (0.5-0.9) Estimat Glomerular Filtration Rate > 60 mL/min (>60) > 60 mL/min (>60) Glucose Level 93 mg/dL (74-106) 96 mg/dL (74-106) Calcium Level 9.3 mg/dL (8.6-10.2) 8.4 mg/dL (8.6-10.2) Total Bilirubin < 0.2 mg/dL (0.0-1.2) 0.3 mg/dL (0.0-1.2) Aspartate Amino Transf (AST/SGOT) 172 U/L (5-40) 26 U/L (5-40) Alanine Aminotransferase (ALT/SGPT) 79 U/L (3-33) 43 U/L (3-33) Alkaline Phosphatase 94 U/L (35-104) 79 U/L (35-104) Total Protein 7.5 g/dL (6.6-8.7) 6.0 g/dL (6.6-8.7) Albumin 4.3 g/dL (3.5-5.2) 3.3 g/dL (3.5-5.2) Globulin 3.2 g/dL 2.7 g/dL Albumin/Globulin Ratio 1.3 (1.0-2.7) 1.2 (1.0-2.7) Lipase 21 U/L (< 60) Hepatitis A IgM Antibody Negative (Negative) Hepatitis B Surface Antigen Negative (Negative) Hepatitis B Core IgM Antibody Negative (Negative) Hepatitis C Antibody 10.5 s/co ratio Risk Assessment & Plan Assessment: asa2 Plan: mac Status Change Before Surgery: No Pre-Antibiotics Drug: ROSEMARIE Hayes May 25, 2017 09:56
--- NOTE | 2017-05-25 10:28 | Endoscopy Procedure Note ---
Endoscopy Procedure Note Indication for Procedure: dilated CBD Procedures Performed: other Operative Findings/Diagnosis: same Specimen: yes Pt Tolerated Procedure Well: Yes Anesthesiologist: tesha Anesthesia: MAC Implant(s) used?: No 50 yrs or older w/o bx or poly: Not Applicable 10yrs. F/U not recommended: Not Applicable TERE PHILIP May 25, 2017 10:28
[2017-05-25] MEDS ORDERED: Midazolam 2mg/2ml Inj IVP PRN (10:45)
[2017-05-25] MEDS ORDERED: DiphenhydrAMINE 50mg/ml Inj IVP PRN (10:45)
[2017-05-25] MEDS ORDERED: Atropine Inj 1mg/10ml Syr IV PRN (10:45)
[2017-05-25] MEDS ORDERED: Hydromorphone 0.5mg/0.5ml inj IVP PRN (10:45)
--- NOTE | 2017-05-25 10:45 | Immediate Post-Op Evaluation ---
Immediate Post-Op Evalulation Immediate Post-Op Evalulation Procedure: eus Date of Evaluation: May 25, 2017 Time of Evaluation: 10:43 IV Fluids: 300ml 0.9ns Blood Products: none Estimated Blood Loss: negligible Blood Pressure Systolic: 150 Blood Pressure Diastolic: 86 Pulse Rate: 71 Respiratory Rate: 18 O2 Sat by Pulse Oximetry: 100 Temperature (Fahrenheit): 97.4 Pain Score (1-10): 0 Nausea: No Vomiting: No Complications none Patient Status: awake, reacts, patent Hydration Status: adequate Drug: ROSEMARIE Hayes May 25, 2017 10:45
--- NOTE | 2017-05-25 10:47 | 48 Hour Post Anesthesia Eval ---
Post Anesthesia Evaluation Procedure: eus Date of Evaluation: May 25, 2017 Time of Evaluation: 10:46 Blood Pressure Systolic: 146 0: 73 Pulse Rate: 71 Respiratory Rate: 18 Temperature (Fahrenheit): 97.4 O2 Sat by Pulse Oximetry: 97 Airway: patent Nausea: No Vomiting: No Pain Intensity: 0 Hydration Status: adequate Cardiopulmonary Status: stable Mental Status/LOC: patient returned to baseline Post-Anesthesia Complications: none Follow-up care needed: N/A ROSEMARIE DELA CRUZ May 25, 2017 10:47
[2017-05-25] MEDS: ALPRAZolam 0.5mg tab ORAL PRN ×2 (11:10→12:53)
--- NOTE | 2017-05-25 15:30 | General Progress Note ---
Assessment/Plan Assessment/Plan Assessment - abdominal pain - chronic CBD dilation - abnormal LFT - Hep C (+) - chronic back pain - h/o drug use Recommendations -outpt f/u with HMO PMD and HMO assigned GI - po diet - pain control Subjective Allergies: Coded Allergies: No Known Allergies (Unverified , 10/06/16) Subjective patient seen earlier today pain better had EUS this am subsequently refused HIDA subsequently d/c'd Objective Last 24 Hour Vital Signs Date Time Temp Pulse Resp B/P (MAP) Pulse Ox O2 Delivery O2 Flow Rate FiO2 05/25/17 12:00 97.0 88 19 133/85 96 Room Air 05/25/17 10:52 97.0 68 17 131/80 98 Room Air 05/25/17 10:47 71 18 97 05/25/17 10:45 71 18 100 05/25/17 10:40 70 18 153/79 96 Room Air 05/25/17 10:35 72 17 150/86 100 Nasal Cannula 3.0 05/25/17 10:31 97.4 69 16 146/83 100 Nasal Cannula 3.0 05/25/17 08:00 97.6 68 19 157/88 94 Room Air 05/25/17 04:00 98.1 67 18 138/78 96 Room Air 05/25/17 00:00 97.8 79 18 128/86 97 Room Air 05/24/17 20:00 98.2 86 18 122/73 96 Room Air 05/24/17 16:07 97.6 74 18 134/70 95 Room Air Intake and Output 05/25/17 05/26/17 19:00 07:00 Intake Total 300 ml Output Total 0 ml Balance 300 ml IV Total 300 ml Estimated Blood Loss 0 ml Height (Feet): 5 Height (Inches): 1.00 Weight (Pounds): 130 Objective WDWN AA woman NCAT supple CTA RRR Abd soft ND, (+) TTP epigastric no edema non focal GIO BLANCA May 25, 2017 15:29
--- NOTE | 2017-05-25 23:30 | Procedure Note ---
DATE OF PROCEDURE: 05/25/2017 SURGEON: German Chavez M.D. PROCEDURE: Endoscopic ultrasound. ANESTHESIOLOGIST: Nohemi Chaudhary M.D. INSTRUMENT: Olympus adult EUS scope. INDICATION: Common bile duct and pancreatic duct dilatation. REASON FOR PROCEDURE: The procedure, risks, benefits, and possible consequences, including hemorrhage, aspiration, perforation and infection, and alternative treatments, were explained to the patient/legal guardian by Dr. German Chavez and the patient/legal guardian understood and accepted these risks. DESCRIPTION OF PROCEDURE: After informed consent was obtained and the patient was adequately sedated, EUS scope was advanced from the mouth into the second portion of the duodenum and pancreatic parenchyma was carefully examined through the gastroduodenal mucosa. The patient had normal pancreatic parenchyma in the body and tail. There was mildly dilated pancreatic duct in the genu roughly measured 3.5 mm. There was no obvious celiac axis lymphadenopathy. Left adrenal gland was seen without any obvious adenoma or pathology on it. Then, the scope was advanced to the duodenal bulb and second portion of duodenum where the head of the pancreas was examined. Common bile duct was dilated to about 1.04 cm in the maximum dilation. As we get to the head of the pancreas, the common bile duct measured roughly about 4 mm. Pancreatic duct was also dilated at the head of the pancreas to about 3.7 mm. No obvious mass or any ampullary mass or pancreatic head mass was seen. Gallbladder was also seen without any obvious stone in it. The patient tolerated the procedure well without any complication. SUMMARY OF FINDINGS: 1. Dilated common bile duct and pancreatic duct of unknown etiology at this time. 2. No obvious periampullary, ampullary, or pancreatic mass at this time. I want to thank, Dr. Mason, for this kind referral. German Chavez M.D. DR: YUNIOR JOB#: [id number] CC: Felicity Mason M.D.; Fax#: [phone]
--- NOTE | 2017-05-28 10:23 | Discharge Summary ---
Discharge Summary Hospital Course Date of Admission May 23, 2017 at 09:03 Date of Discharge May 25, 2017 at 14:36 Admitting Diagnosis intractible abdominal pain HPI Sesar Jarvis is a 56 year old female who was admitted on May 23, 2017 at 09:03 for Intractible Abdominal Pain Hospital Course dc summary #[id number] Discharge Medications Continued Medications: Ondansetron Odt* (Zofran Odt*) 4 Mg Tab.rapdis 4 MG ORAL Q6H PRN for Nausea & Vomiting, #30 TAB 0 Refills Pantoprazole* (Protonix*) 40 Mg Tablet.dr 40 MG ORAL DAILY, #30 TAB Sucralfate* (Carafate*) 1 Gm Tablet 1 GM ORAL FOUR TIMES A DAY, #30 TAB Discharge Condition Upon Discharge: stable Discharge Disposition Patient was discharged to Home (01) Discharge Diagnoses: Discharge Instructions Discharge Instructions Special Instructions I have been assigned to complete a D/C Summary on this account. I was not involved in the patient management Crystal Andrade NP (Vanchtein) May 28, 2017 10:23
--- NOTE | 2017-05-29 00:30 | Discharge Summary 2 SIG ---
DATE OF ADMISSION: 05/23/2017 DATE OF DISCHARGE: 05/25/2017 REASON FOR ADMISSION: This is a 56-year-old female with a history of pancreatitis and GERD, who presented with complaint of abdominal pain. The patient also reported increased nausea and vomiting. No blood in the vomitus. No blood in stool. The patient had similar symptoms two months ago when she was admitted to [facility]. She denied diarrhea. She denied chest pain or shortness of breath. She denies fevers or chills. No dysuria. No frequency. No flank pain. In the emergency department on evaluation found elevated liver enzymes, AST 172 and ALT 79. Lipase within normal limits 21. CT of the abdomen and pelvis was done and revealed markedly dilated common bile duct. No definite downstream obstructive lesion was demonstrated, mildly distended gallbladder but no gallstones, likely local mild pericholecystic fluid. No acute process otherwise. The patient was admitted for further management. ADMITTING DIAGNOSES: 1. Abdominal pain. 2. Dilated common bile duct. 3. Elevated liver enzymes. 4. History of pancreatitis. HOSPITAL COURSE: The patient was admitted. The patient was started on IV fluids. Initially kept NPO. GI consult requested. MRCP was ordered. MRCP subsequently revealed gallbladder mildly distended. No definite filling defect to suggest this. Liver unremarkable. Marked biliary ductal dilatation. No definite downstream obstructive lesion. Mild pericholecystic fluid. No definite gallstones. No gallbladder wall thickening. Mild pancreatic ductal dilatation. GI doctor subsequently seen and evaluated the patient. The patient started on antiemetic as needed and PPI, and the patient was referred to another GI specialist for endoscopic ultrasound, which subsequently was performed on 05/25/2017. It revealed dilated common bile duct and mild dilatation of pancreatic duct. Hepatitis panel revealed evidence of hepatitis C infection. Pain management provided. The patient was started on diet as tolerated, liquid diet and slowly advanced to regular as tolerated. When she was able to tolerate regular diet, IV fluids discontinued. Antiemetic provided on as-needed basis. Pain management provided. The patient counseled on abstinence from drug abuse. The patient was stable for discharge home on PPI and Carafate as per GI recommendation. The patient will need to follow up with the primary medical doctor to locate GI per her insurance and follow up with GI as outpatient treatment for hepatitis C. DISCHARGE MEDICATIONS: See medication reconciliation list. Jim Curran M.D. I have been assigned to dictate discharge summary on this account and I was not involved in the patient's management. Crystal Andrade N.P. (vanchtein) DR: RAD JOB#: [id number] CC:
== END 2017-05-25 14:36 | disposition home or self-care (01) ==
LOC: EDBD 01:27 → EDUNIT# 01:27 → EMR 01:49 → 4E 09:03 → EDBEDREQ 09:12
PROC: BF47ZZZ Ultrasonography of Pancreas (ICD-10-PCS; 2017-05-25)
PROC: 0DJ08ZZ Inspection of Upper Intestinal Tract, Via Natural or Artificial Opening Endoscopic (ICD-10-PCS; principal; 2017-05-25 10:00)
PROC: BF40ZZZ Ultrasonography of Bile Ducts (ICD-10-PCS; 2017-05-25 10:00)
DX: K83.8 Other specified diseases of biliary tract (principal); G89.29 Other chronic pain; K21.9 Gastro-esophageal reflux disease without esophagitis; R74.8 Abnormal levels of other serum enzymes; R10.9 Unspecified abdominal pain; M54.9 Dorsalgia, unspecified
CPT/HCPCS: 36415; 74177; 74181; 80053; 82962; 83690; 85025; 86705; 86709; 86803; 87340; 94003; 94150; 99285; J2765

== ENCOUNTER 2017-07-01 13:00 | Emergency (ER) | payer OTHER ==
[~2017-07-01] VITALS: Ht 157.5 cm; Wt 63.5 kg
[2017-07-01 13:13] VITALS: BP 153/91
[2017-07-01] MEDS ORDERED: HYDROmorphone 1mg/ml Carpuject IVP ONE (13:15)
[2017-07-01 13:49] LABS: BASOPHILS % (AUTO) 1.3 % (0.0-2.0); EOSINOPHILS % (AUTO) 1.7 % (0.0-3.0); LYMPHOCYTES % (AUTO) 34.4 % (20.0-45.0); MEAN CORPUSCULAR HEMOGLOBIN 28.3 PG (27.0-31.0); MEAN CORPUSCULAR HGB CONC 31.7 G/DL (32.0-36.0); MEAN CORPUSCULAR VOLUME 89 FL (80-99); MEAN PLATELET VOLUME 8.7 FL (6.5-10.1); MONOCYTES % (AUTO) 7.6 % (1.0-10.0); NEUTROPHILS % (AUTO) 54.9 % (45.0-75.0); PLATELET COUNT 150 K/UL (150-450); RED BLOOD COUNT 4.76 M/UL (4.20-5.40); RED CELL DISTRIBUTION WIDTH 13.3 % (11.6-14.8); WHITE BLOOD COUNT 4.9 K/UL (4.8-10.8)
[2017-07-01 13:58] LABS: APPEARANCE,URINE SLIGHTLY CLOUDY; KETONES,URINE NEGATIVE (NEGATIVE); LEUKOCYTE ESTERASE ,URINE 1+ (NEGATIVE); NITRITE,URINE NEGATIVE (NEGATIVE); PH,URINE 6 (4.5-8.0); PROTEIN,URINE NEGATIVE (NEGATIVE); UROBILINOGEN,URINE NORMAL MG/DL (0.0-1.0)
[2017-07-01 14:05] LABS: ALANINE AMINOTRANSFERASE 30 U/L (12-78); ALBUMIN/GLOBULIN RATIO 0.9 (1.0-2.7); ANION GAP 10 (5-15); ASPARTATE AMINO TRANSFERASE 20 U/L (15-37); CALCIUM 9.3 MG/DL (8.5-10.1); CARBON DIOXIDE 27 MMOL/L (21-32); CHLORIDE 105 MMOL/L (98-107); CREATININE 0.9 MG/DL (0.55-1.30); GLOMERULAR FILTRATION RATE > 60 mL/min (>60); LIPASE 107 U/L (73-393); POTASSIUM 4.4 MMOL/L (3.5-5.1); SODIUM 142 MMOL/L (136-145); TOTAL PROTEIN 7.8 G/DL (6.4-8.2)
[2017-07-01 14:21] LABS: BACTERIA,URINE FEW /HPF; RBC,URINE 0-2 /HPF (0 - 2); SQUAMOUS EPITHELIAL CELL,UR MODERATE /LPF (NONE/OCC); YEAST,URINE FEW /HPF
[2017-07-01] MEDS ORDERED: PROTONIX40 MG ORAL (14:34)
[2017-07-01] MEDS ORDERED: ACETAMINOPHEN-1 EAC1 ORAL (14:34)
[2017-07-01 15:23] VITALS: BP 145/60
[2017-07-02] MEDS ORDERED: PROTONIX40 MG ORAL (10:59)
--- NOTE | 2017-07-03 03:57 | Emergency Room Report ---
History of Present Illness General Chief Complaint: Abdominal Pain Source: Patient Present Illness HPI Patient present with complaints of epigastric discomfort pain has some radiation to the back Patient initially somewhat anxious however has improved during her initial history There was a report noting chest pain however patient has discomfort epigastric area also burning sensation in the midsternal area Denies any diarrhea denies any back or flank pain Patient reports the pain is 6/10 Allergies: Coded Allergies: CODEINE (Unverified Allergy, Unknown, 07/02/17) Patient History Past Medical History: see triage record Pertinent Family History: none Last Menstrual Period: na Reviewed Nursing Documentation: PMH: Agreed, PSxH: Agreed Nursing Documentation-PMH Past Medical History: No History, Except For Hx Cardiac Problems: No Hx Hypertension: No Hx Pacemaker: No Hx Asthma: No Hx COPD: No Hx Diabetes: No Hx Cancer: No Hx Gastrointestinal Problems: Yes - gastritis, abdominal pain, vomiting Hx Dialysis: No Hx Neurological Problems: No Hx Cerebrovascular Accident: No Hx Seizures: No Hx Neurologic Surgery: No Review of Systems All Other Systems: negative except mentioned in HPI Physical Exam Vital Signs Date Time Temp Pulse Resp B/P (MAP) Pulse Ox O2 Delivery O2 Flow Rate FiO2 07/01/17 13:03 98.1 80 26 130/85 97 07/01/17 13:13 Room Air Sp02 EP Interpretation: reviewed, normal General Appearance: well appearing, no apparent distress Head: normocephalic, atraumatic Eyes: bilateral eye PERRL, bilateral eye EOMI ENT: hearing grossly normal, normal pharynx, TMs + canals normal, uvula midline Neck: full range of motion, supple, no meningismus, no bony tend Respiratory: lungs clear, normal breath sounds, no rhonchi, no respiratory distress, no retraction, no accessory muscle use Cardiovascular #1: normal peripheral pulses, regular rate, rhythm, no edema, no gallop, no JVD, no murmur Gastrointestinal: normal bowel sounds, soft, no mass, no organomegaly, non- distended, no guarding, no hernia, no pulsatile mass, no rebound, tenderness - Mild discomfort epigastric area Genitourinary: no CVA tenderness Musculoskeletal: normal inspection Neurologic: oriented x3, responsive, sample washer III-XII nml as tested, motor strength/ tone normal, sensory intact Psychiatric: mood/affect normal Skin: normal color, no rash, warm/dry, palpation normal Lymphatic: normal inspection, no adenopathy Medical Decision Making Diagnostic Impression: Primary Impression: abdominal pain ER Course With the history exam and presentation, multiple differentials considered, including but not limited to appendicitis, gastritis, cholecystitis, diverticulitis Patient had fairly extensive workup recently with upper endoscopy At this time blood work continues to reveal normal liver function test and pancreas patient's pain significantly improved patient requires close outpatient followup Labs Test 07/01/17 13:27 White Blood Count 4.9 K/UL (4.8-10.8) Red Blood Count 4.76 M/UL (4.20-5.40) Hemoglobin 13.5 G/DL (12.0-16.0) Hematocrit 42.5 % (37.0-47.0) Mean Corpuscular Volume 89 FL (80-99) Mean Corpuscular Hemoglobin 28.3 PG (27.0-31.0) Mean Corpuscular Hemoglobin Concent 31.7 G/DL (32.0-36.0) Red Cell Distribution Width 13.3 % (11.6-14.8) Platelet Count 150 K/UL (150-450) Mean Platelet Volume 8.7 FL (6.5-10.1) Neutrophils (%) (Auto) 54.9 % (45.0-75.0) Lymphocytes (%) (Auto) 34.4 % (20.0-45.0) Monocytes (%) (Auto) 7.6 % (1.0-10.0) Eosinophils (%) (Auto) 1.7 % (0.0-3.0) Basophils (%) (Auto) 1.3 % (0.0-2.0) Urine Color Yellow Urine Appearance Slightly cloudy Urine pH 6 (4.5-8.0) Urine Specific [place] 1.015 (1.005-1.035) Urine Protein Negative (NEGATIVE) Urine Glucose (UA) Negative (NEGATIVE) Urine Ketones Negative (NEGATIVE) Urine Occult Blood Negative (NEGATIVE) Urine Nitrite Negative (NEGATIVE) Urine Bilirubin Negative (NEGATIVE) Urine Urobilinogen Normal MG/DL (0.0-1.0) Urine Leukocyte Esterase 1+ (NEGATIVE) Urine RBC 0-2 /HPF (0 - 2) Urine WBC 2-4 /HPF (0 - 2) Urine Squamous Epithelial Cells Moderate /LPF (NONE/OCC) Urine Bacteria Few /HPF (NONE) Urine Yeast Few /HPF (NONE) Sodium Level 142 MMOL/L (136-145) Potassium Level 4.4 MMOL/L (3.5-5.1) Chloride Level 105 MMOL/L (98-107) Carbon Dioxide Level 27 MMOL/L (21-32) Anion Gap 10 (5-15) Blood Urea Nitrogen 20 mg/dL (7-18) Creatinine 0.9 MG/DL (0.55-1.30) Estimat Glomerular Filtration Rate > 60 mL/min (>60) Glucose Level 104 MG/DL (74-106) Calcium Level 9.3 MG/DL (8.5-10.1) Total Bilirubin 0.2 MG/DL (0.2-1.0) Aspartate Amino Transf (AST/SGOT) 20 U/L (15-37) Alanine Aminotransferase (ALT/SGPT) 30 U/L (12-78) Alkaline Phosphatase 70 U/L (46-116) Total Protein 7.8 G/DL (6.4-8.2) Albumin 3.8 G/DL (3.4-5.0) Globulin 4.0 g/dL Albumin/Globulin Ratio 0.9 (1.0-2.7) Lipase 107 U/L (73-393) Rhythm Strip Diag. Results EP Interpretation: yes Rate: 67 Rhythm: NSR, no PVC's, no ectopy Last Vital Signs Date Time Temp Pulse Resp B/P (MAP) Pulse Ox O2 Delivery O2 Flow Rate FiO2 07/01/17 15:23 98.1 75 18 145/60 99 Room Air Status: improved Disposition: HOME, SELF-CARE Condition: Improved Scripts Acetaminophen With Codeine (T#3) (TYLENOL #3 TAB*) Y Tab 1 TAB ORAL Q8H Y for For Pain, #12 TAB Prov: NENO MURRAY D.O. 07/01/17 Pantoprazole* (PROTONIX*) 40 Mg Tablet. 40 MG ORAL DAILY for 10 Days, TAB Prov: NENO MURRAY D.O. 07/01/17 Referrals: [facility],REFERRING (PCP) Patient Instructions: Abdominal Pain, Adult Additional Instructions: Patient is provided with the discharge instructions notified to follow up with primary doctor in the next 2-3 days otherwise return to the er with any worsening symptoms. Please note that this report is being documented using DRAGON technology. This can lead to erroneous entry secondary to incorrect interpretation by the dictating instrument. NENO MURRAY D.O. Jul 03, 2017 03:57
== END 2017-07-01 15:23 | disposition home or self-care (01) ==
LOC: EMR 13:37
DX: R10.13 Epigastric pain (principal); Z88.6 Allergy status to analgesic agent; R07.89 Other chest pain
CPT/HCPCS: 36415; 80053; 81003; 83690; 85025; 87086; 96361; 96374; 96375; 99284; J1170; J2405

== ENCOUNTER 2017-07-02 10:12 | Emergency (ER) | payer OTHER ==
[~2017-07-02] VITALS: Ht 157.5 cm; Wt 63.5 kg
[~2017-07-02 10:12] MED LIST changes: +ACETAMINOPHEN-1 EAC1 ORAL
[2017-07-02] MEDS ORDERED: Lidocaine 2% Visc 15ml soln ORAL ONE (10:45)
[2017-07-02] MEDS ORDERED: Mylanta II UD 30ml ORAL ONE (10:45)
[2017-07-02] MEDS ORDERED: Famotidine 20 MG/ 2ML VIAL IVP ONE (10:45)
[2017-07-02] MEDS ORDERED: Dicyclomine HCl 10mg/5ml oral soln ORAL ONE (10:45)
--- NOTE | 2017-07-02 10:47 | Emergency Room Report ---
History of Present Illness General Chief Complaint: Abdominal Pain Source: Patient Present Illness HPI 49-year-old female with chronic abdominal pain p/w abdominal pain one week. Patient reports that pain is localized to gastric area, non radiating, or name in nature, intermittent. No relieving or exacerbating factors. Severity is mild/ moderate. Patient states that she is on Carafate and protonix but ran out on Sunday Pt reports n/v, 2 episodes of nbnb vomiting, denies diarrhea Denies fever, chills. Patient was last admitted for abdominal pain and discharged mid-May, also other recent visit to the emergency room 2 days ago. During her admission in May she had an ERCP which showed a dilated common bile duct however no actual obstruction, at that time she refused hida scan, she was feeling better and then discharged Allergies: Coded Allergies: CODEINE (Unverified Allergy, Unknown, 07/02/17) Patient History Past Medical History: see triage record Past Surgical History: none Pertinent Family History: none Reviewed Nursing Documentation: PMH: Agreed, PSxH: Agreed Nursing Documentation-PMH Hx Cardiac Problems: No Hx Hypertension: No Hx Pacemaker: No Hx Asthma: No Hx COPD: No Hx Diabetes: No Hx Cancer: No Hx Gastrointestinal Problems: Yes - Pt is vaue Hx Dialysis: No Hx Neurological Problems: No Hx Cerebrovascular Accident: No Hx Seizures: No Hx Neurologic Surgery: No Review of Systems All Other Systems: negative except mentioned in HPI Physical Exam Vital Signs Date Time Temp Pulse Resp B/P (MAP) Pulse Ox O2 Delivery O2 Flow Rate FiO2 07/02/17 10:07 97.2 86 16 156/82 99 Room Air Sp02 EP Interpretation: reviewed, normal General Appearance: alert, GCS 15, non-toxic, mild distress Head: normocephalic, atraumatic Eyes: bilateral eye normal inspection, bilateral eye PERRL, bilateral eye EOMI ENT: normal ENT inspection, normal pharynx, normal voice, moist mucus membranes Neck: normal inspection, full range of motion, supple Respiratory: normal inspection, lungs clear, normal breath sounds, no respiratory distress, no retraction, no wheezing, speaking full sentences, chest symmetrical Cardiovascular #1: normal inspection, regular rate, rhythm, no edema, normal capillary refill Cardiovascular #2: 2+ radial (R), 2+ radial (L) Gastrointestinal: soft, non-distended, no guarding, other - Mild epigastric tenderness Musculoskeletal: normal inspection, back normal, normal range of motion, non- tender Neurologic: normal inspection, alert, oriented x3, responsive, motor strength/ tone normal, sensory intact, normal gait, speech normal Psychiatric: normal inspection, judgement/insight normal, memory normal Skin: normal inspection, normal color, no rash, warm/dry, well hydrated, normal turgor Medical Decision Making Diagnostic Impression: Primary Impression: Chronic abdominal pain ER Course 49-year-old female with chronic abdominal pain presents with abdominal pain Differential Diagnosis: Gastritis, gastroenteritis, cholecystitis, appendicitis, diverticulitis, SBO, mesenteric ischemia, cardiac, UTI/pyelo At this time abdomen is soft nontender, not likely to have acute intra- abdominal surgical pathology, will hold CT for now. Plan: Basic labs, ua Pepcid, maalox, pain control, IVF ER course: Patient has remained stable during ED stay. Pain improved. Repeat abdominal exam is nontender. Tolerating PO Disposition: Patient is to be discharged to home. Will give prescription of Protonix Patient is instructed to follow up with their primary care doctor within 5 days. Patient is instructed to follow up with gi within 3 days. Strict return precautions discussed with patient such as fever, chills, worsening/severe abdominal pain, nausea, vomiting, black or bloody stools, which may indicate severe illness. Patient verbalizes understanding and agrees with plan. Please note that this Emergency Department Report was dictated using [employer] psychiatry technology software, occasionally this can lead to erroneous entry secondary to interpretation by the dictation equipment Rhythm Strip EP Interpretation: Yes Rate: 75 Rhythm: NSR, no PVCs, no ectopy Labs Test 07/02/17 11:15 White Blood Count 3.8 K/UL (4.8-10.8) Red Blood Count 4.98 M/UL (4.20-5.40) Hemoglobin 14.1 G/DL (12.0-16.0) Hematocrit 44.3 % (37.0-47.0) Mean Corpuscular Volume 89 FL (80-99) Mean Corpuscular Hemoglobin 28.3 PG (27.0-31.0) Mean Corpuscular Hemoglobin Concent 31.8 G/DL (32.0-36.0) Red Cell Distribution Width 13.3 % (11.6-14.8) Platelet Count 73 K/UL (150-450) Mean Platelet Volume 8.4 FL (6.5-10.1) Neutrophils (%) (Auto) % (45.0-75.0) Lymphocytes (%) (Auto) % (20.0-45.0) Monocytes (%) (Auto) % (1.0-10.0) Eosinophils (%) (Auto) % (0.0-3.0) Basophils (%) (Auto) % (0.0-2.0) Differential Total Cells Counted 100 Neutrophils % (Manual) 47 % (45-75) Lymphocytes % (Manual) 39 % (20-45) Monocytes % (Manual) 14 % (1-10) Eosinophils % (Manual) 0 % (0-3) Basophils % (Manual) 0 % (0-2) Band Neutrophils 0 % (0-8) Platelet Estimate Decreased Platelet Morphology Normal Sodium Level 140 MMOL/L (136-145) Potassium Level 4.1 MMOL/L (3.5-5.1) Chloride Level 105 MMOL/L (98-107) Carbon Dioxide Level 26 MMOL/L (21-32) Anion Gap 9 (5-15) Blood Urea Nitrogen 16 mg/dL (7-18) Creatinine 0.8 MG/DL (0.55-1.30) Estimat Glomerular Filtration Rate > 60 mL/min (>60) Glucose Level 104 MG/DL (74-106) Calcium Level 9.5 MG/DL (8.5-10.1) Total Bilirubin 0.3 MG/DL (0.2-1.0) Aspartate Amino Transf (AST/SGOT) 21 U/L (15-37) Alanine Aminotransferase (ALT/SGPT) 31 U/L (12-78) Alkaline Phosphatase 72 U/L (46-116) Total Protein 7.9 G/DL (6.4-8.2) Albumin 3.8 G/DL (3.4-5.0) Globulin 4.1 g/dL Albumin/Globulin Ratio 0.9 (1.0-2.7) Lipase 98 U/L (73-393) Last Vital Signs Date Time Temp Pulse Resp B/P (MAP) Pulse Ox O2 Delivery O2 Flow Rate FiO2 07/02/17 10:07 97.2 86 16 156/82 99 Room Air Disposition: HOME, SELF-CARE Condition: Improved Scripts Pantoprazole* (PROTONIX*) 40 Mg Tablet. 40 MG ORAL DAILY for 14 Days, #14 TAB 0 Refills Prov: Samson Snider M.D. 07/02/17 Samson Snider M.D. Jul 02, 2017 10:46
[2017-07-02] MEDS ORDERED: PROTONIX40 MG ORAL (10:59)
[2017-07-02 11:39] LABS: MEAN CORPUSCULAR HEMOGLOBIN 28.3 PG (27.0-31.0); MEAN CORPUSCULAR HGB CONC 31.8 G/DL (32.0-36.0); MEAN CORPUSCULAR VOLUME 89 FL (80-99); MEAN PLATELET VOLUME 8.4 FL (6.5-10.1); PLATELET COUNT 73 K/UL (150-450); RED BLOOD COUNT 4.98 M/UL (4.20-5.40); RED CELL DISTRIBUTION WIDTH 13.3 % (11.6-14.8); WHITE BLOOD COUNT 3.8 K/UL (4.8-10.8)
[2017-07-02 11:44] VITALS: BP 145/88
[2017-07-02 11:49] LABS: ALANINE AMINOTRANSFERASE 31 U/L (12-78); ALBUMIN/GLOBULIN RATIO 0.9 (1.0-2.7); ANION GAP 9 (5-15); ASPARTATE AMINO TRANSFERASE 21 U/L (15-37); CALCIUM 9.5 MG/DL (8.5-10.1); CARBON DIOXIDE 26 MMOL/L (21-32); CHLORIDE 105 MMOL/L (98-107); CREATININE 0.8 MG/DL (0.55-1.30); GLOMERULAR FILTRATION RATE > 60 mL/min (>60); LIPASE 98 U/L (73-393); POTASSIUM 4.1 MMOL/L (3.5-5.1); SODIUM 140 MMOL/L (136-145); TOTAL PROTEIN 7.9 G/DL (6.4-8.2)
[2017-07-02] MEDS ORDERED: Morphine Sulfate 4mg/ml Inj IVP ONE (12:45)
[2017-07-02 12:55] VITALS: BP 145/88
[2017-07-02 14:00] LABS: BAND NEUTROPHILS % (MANUAL) 0 % (0-8); BASOPHILS % (MANUAL) 0 % (0-2); EOSINOPHILS % (MANUAL) 0 % (0-3); LYMPHOCYTES % (MANUAL) 39 % (20-45); NEUTROPHILS % (MANUAL) 47 % (45-75); PLATELET ESTIMATE DECREASED; PLATELET MORPHOLOGY NORMAL; TOTAL CELLS COUNTED 100
== END 2017-07-02 12:55 | disposition home or self-care (01) ==
LOC: EDBD 10:12 → EMR 11:00
DX: R10.9 Unspecified abdominal pain (principal); G89.29 Other chronic pain; Z88.6 Allergy status to analgesic agent
CPT/HCPCS: 36415; 80053; 83690; 85007; 85025; 96361; 96374; 96375; 99284; J2405; S0028

== ENCOUNTER 2017-07-13 17:50 | Emergency (ER) | payer OTHER ==
[~2017-07-13] VITALS: Ht 160 cm; Wt 70.3 kg
--- NOTE | 2017-07-13 17:54 | Emergency Room Report ---
History of Present Illness General Chief Complaint: Abdominal Pain Present Illness HPI 57YOF BIBEMS from home with midsternal "burning...my acid reflux" and nausea for 2 days. Denies diarrhea, fever/chills, urinary complaints Takes 200mg methadone daily for 1 year. Last took yesterday. Didnt take today d/t nausea. Patient with multiple visits to ED here for same. Blood work and UA were negative on Jul 02 and MRI in May 2017: "Marked biliary ductal dilatation, also described on multiple prior CT scans." Per EMR, patient refused HIDA scan previously is on PPI and carafate. Cant tolerate Carafate. Takes prilosec and nexium only. Allergies: Coded Allergies: CODEINE (Unverified Allergy, Unknown, 07/02/17) Patient History Past Medical History: old chart reviewed, other - Acid reflux Past Surgical History: none Pertinent Family History: none Social History: Denies: smoking, alcohol use, drug use Now: No Immunizations: UTD Reviewed Nursing Documentation: PMH: Agreed, PSxH: Agreed Nursing Documentation-PMH Hx Cardiac Problems: No Hx Hypertension: No Hx Pacemaker: No Hx Asthma: No Hx COPD: No Hx Diabetes: No Hx Cancer: No Hx Gastrointestinal Problems: Yes - gastritis, abdominal pain, vomiting Hx Dialysis: No Hx Neurological Problems: No Hx Cerebrovascular Accident: No Hx Seizures: No Hx Neurologic Surgery: No Review of Systems All Other Systems: negative except mentioned in HPI Physical Exam Sp02 EP Interpretation: reviewed, normal General Appearance: normal inspection, well appearing, no apparent distress, alert, GCS 15, non-toxic, other - Crying, anxious but redirectabel and consolable Head: normocephalic, atraumatic Eyes: bilateral eye PERRL, bilateral eye EOMI ENT: normal ENT inspection, hearing grossly normal, normal voice Neck: normal inspection, full range of motion, supple, no bony tend Respiratory: normal inspection, lungs clear, normal breath sounds, no respiratory distress, no retraction, no wheezing Cardiovascular #1: regular rate, rhythm, no edema Gastrointestinal: normal inspection, normal bowel sounds, non tender, soft, no guarding, no hernia Genitourinary: no CVA tenderness Musculoskeletal: normal inspection, back normal, normal range of motion, Leanna' s Sign negative Neurologic: normal inspection, alert, responsive, speech normal Psychiatric: normal inspection, judgement/insight normal, mood/affect normal Skin: normal inspection, normal color, no rash Medical Decision Making Diagnostic Impression: Primary Impression: GERD (gastroesophageal reflux disease) Qualified Codes: K21.9 - Gastro-esophageal reflux disease without esophagitis ER Course Chronic gastritis, mid-sternal pain VSS. Afebrile Abd non-focal on serial exam Given IM zofran and GI cocktail here Tolerating PO at DC Advised continued PPI, prilosec GI/PMD referral I see no need to repeat labs/imaging at this time as patient has had multiple unremarkable lab evaluation previously and has had MRI, CT, colonoscopy/ endoscopy Is already on the preferred outpatient Tx as well DC home with close PMD followup Status: improved Disposition: HOME, SELF-CARE VIVIANA JUAREZ M.D. Jul 13, 2017 17:54
[2017-07-13] MEDS ORDERED: Lidocaine 2% Visc 15ml soln ORAL ONE (18:15)
[2017-07-13] MEDS ORDERED: Mylanta II UD 30ml ORAL ONE (18:15)
[2017-07-13 18:16] LABS: APPEARANCE,URINE CLEAR; KETONES,URINE NEGATIVE (NEGATIVE); LEUKOCYTE ESTERASE ,URINE NEGATIVE (NEGATIVE); NITRITE,URINE NEGATIVE (NEGATIVE); PH,URINE 7 (4.5-8.0); PROTEIN,URINE NEGATIVE (NEGATIVE); UROBILINOGEN,URINE NORMAL MG/DL (0.0-1.0)
[2017-07-13 18:23] VITALS: BP 152/92
[2017-07-13 19:05] VITALS: BP 145/86
[2017-07-13 19:08] VITALS: BP 145/86
[2017-07-13] MEDS ORDERED: XYLOCAINE MPF INJ (19:10)
== END 2017-07-13 19:15 | disposition home or self-care (01) ==
LOC: EDBD 17:50 → EMR 18:15
DX: K21.9 Gastro-esophageal reflux disease without esophagitis (principal); Z88.6 Allergy status to analgesic agent
CPT/HCPCS: 80307; 81003; 96372; 99283; J2405

== ENCOUNTER 2017-07-13 21:13 | Emergency (ER) | payer OTHER ==
[~2017-07-13] VITALS: Ht 157.5 cm; Wt 63.5 kg
[~2017-07-13 21:13] MED LIST changes: +XYLOCAINE MPF INJ
[2017-07-13 21:20] VITALS: BP 154/89
--- NOTE | 2017-07-13 21:28 | Emergency Room Report ---
History of Present Illness General Chief Complaint: Abdominal Pain Source: Patient Present Illness HPI Is a 57-year-old female whose been here multiple times. She has a history of drug abuse on methadone currently. Also history of chronic abdominal pain with unremarkable workup. This was done recently. She was seen here earlier today. She was given prescription for viscous lidocaine but did not fill it yet. She presents with chief complaint abdominal pain and vomiting x1. No diarrhea. Similar to previous symptoms. Here for a dose of viscous lidocaine. Denies any other complaint. Pain is 10 out of 10. No fever or chills. Similar to previous episodes. Allergies: Coded Allergies: CODEINE (Unverified Allergy, Unknown, 07/02/17) Patient History Past Medical History: see triage record, old chart reviewed Past Surgical History: other Pertinent Family History: none Social History: Reports: drug use - History of heroin abuse. On methadone to Now: No : 0 Para: 0 Immunizations: other Reviewed Nursing Documentation: PMH: Agreed, PSxH: Agreed Nursing Documentation-PMH Hx Cardiac Problems: No Hx Hypertension: No Hx Pacemaker: No Hx Asthma: No Hx COPD: No Hx Diabetes: No Hx Cancer: No Hx Gastrointestinal Problems: Yes Hx Dialysis: No Hx Neurological Problems: No Hx Cerebrovascular Accident: No Hx Seizures: No Hx Neurologic Surgery: No Review of Systems Eye: Denies: eye pain, blurred vision ENT: Denies: ear pain, nose congestion, throat swelling Respiratory: Denies: cough, shortness of breath Cardiovascular: Denies: chest pain, palpitations Gastrointestinal: Reports: abdominal pain, nausea, vomiting, Denies: diarrhea Musculoskeletal: Denies: back pain, joint pain Skin: Denies: rash Neurological: Denies: headache, numbness Endocrine: Denies: increased thirst, increased urine Hematologic/Lymphatic: Denies: easy bruising All Other Systems: negative except mentioned in HPI Physical Exam Vital Signs Date Time Temp Pulse Resp B/P (MAP) Pulse Ox O2 Delivery O2 Flow Rate FiO2 07/13/17 21:16 98.2 86 18 154/89 96 vitals with high blood pressure Sp02 EP Interpretation: reviewed, normal General Appearance: well appearing, no apparent distress, alert Head: normocephalic, atraumatic Eyes: bilateral eye PERRL, bilateral eye EOMI ENT: hearing grossly normal, normal pharynx Neck: full range of motion, supple, no meningismus Respiratory: chest non-tender, lungs clear, normal breath sounds Cardiovascular #1: regular rate, rhythm, no murmur Gastrointestinal: normal bowel sounds, no mass, no organomegaly, no bruit, non- distended, tenderness - Mild diffuse tenderness, epigastric area Musculoskeletal: back normal, gait/station normal, normal range of motion Psychiatric: mood/affect normal Skin: warm/dry Medical Decision Making Diagnostic Impression: Primary Impression: Chronic abdominal pain ER Course Patient with exacerbation of chronic abdominal pain. Better after viscous lidocaine. We'll discharge home. I see no need for further bloodwork or diagnostic study. Last Vital Signs Date Time Temp Pulse Resp B/P (MAP) Pulse Ox O2 Delivery O2 Flow Rate FiO2 07/13/17 21:16 98.2 86 18 154/89 96 Status: improved Disposition: HOME, SELF-CARE Condition: Stable Patient Instructions: Abdominal Pain, Adult Additional Instructions: Take your medication. Followup with your Dr. in 7 days. Return if worse. ANSELMO MCKEON M.D. Jul 13, 2017 21:28
[2017-07-13 21:30] VITALS: BP 154/89
[2017-07-13] MEDS ORDERED: Mylanta II UD 30ml ORAL ONE (21:30)
[2017-07-13] MEDS ORDERED: Lidocaine 2% Visc 15ml soln ORAL ONE (21:30)
== END 2017-07-13 21:45 | disposition home or self-care (01) ==
LOC: EMR 21:33
DX: R10.9 Unspecified abdominal pain (principal); G89.29 Other chronic pain
CPT/HCPCS: 99282